=== PATIENT | female | born 1980 | race Caucasian/White ===

== ENCOUNTER 2021-06-28 11:09 | Emergency (ER) | payer MEDICAID, SELFPAY ==
--- NOTE | 2021-06-28 11:16 | ED.EAR ---
HPI - Ear Problem General Chief complaint: Upper Respiratory Infection Stated complaint: Right Ear Pain Time Seen by Provider: 06/28/21 11:16 Source: patient and RN notes reviewed History of Present Illness HPI Narrative: Patient is a 40-year-old female who presents the urgent care with complaints of right ear pain. Patient states that started 3 days ago and she has been taking ibuprofen. Patient recently had Covid in May and was vaccinated with her first dose recently. Denies of any other upper respiratory complaints. Denies of any known exposure to Covid or strep. No other acute complaints. No acute distress noted. Patient aware of the plan of care. Some parts of this dictation were generated by voice recognition software and may contain typographical and/or grammatical inaccuracies. Related Data Home Medications Medication Instructions Recorded Confirmed phentermine 37.5 mg PO DAILY 06/28/21 06/28/21 Allergies Allergy/AdvReac Type Severity Reaction Status Date / Time Penicillins Allergy Unknown Hives Verified 06/28/21 11:35 Review of Systems Review of Systems: CONSTITUTIONAL: Denies fever, chills, or sweats. EYES: Denies visual changes, redness, or discharge. ENT: Denies rhinorrhea, congestion, sore throat. Reports of right otalgia CARDIOVASCULAR: Denies chest pain, palpitations, or edema. RESPIRATORY: Denies cough or dyspnea. GASTROINTESTINAL: Denies abdominal pain, nausea, vomiting, or diarrhea. GENITOURINARY: Denies dysuria or hematuria. SKIN: Denies rash or itching. MUSCULOSKELETAL: Denies back pain, joint pain, or myalgia. NEUROLOGIC: Denies headache, numbness, or weakness. All other systems reviewed are negative, except as documented in HPI. PMFSH Comments At the time of my signature, I reviewed and agree with the nursing past medical, surgical, social, and family history. There is no relevant family history pertinent to the patient complaint. Exam Narrative: GENERAL: This is a well-nourished, well-developed patient, in no apparent distress. HEAD: normocephalic, atraumatic. EYES: PERRL. Sclera clear/white. Vision is grossly intact. EARS: External ears normal, auditory canals clear and without drainage, moderate fluid noted behind right TM. Unable to visualize left TM due to cerumen impaction. Right TM normal without perforation. Hearing grossly intact. NOSE: External nose normal with no obvious nasal discharge, nares without redness, no rhinorrhea. THROAT: Mucous membranes moist, posterior pharynx clear. Mild postnasal drainage NECK: Neck supple, non-tender without lymphadenopathy, masses or thyromegaly. CARDIOVASCULAR: Regular rate and rhythm without murmurs, gallops, or rubs. RESPIRATORY: Clear to auscultation. Breath sounds equal bilaterally. No wheezes, rales, or rhonchi. SKIN: warm, intact with no suspicious lesions or rash, good texture and turgor. NEURO: awake, alert, and oriented to person, place and time. There were no obvious focal neurologic abnormalities. EXTREMITIES: No clubbing, cyanosis, or edema. Course Vital Signs Vital signs: Vital Signs Temperature 98.9 F 06/28/21 11:22 Pulse Rate 86 06/28/21 11:22 Respiratory Rate 14 06/28/21 11:22 Blood Pressure 121/86 06/28/21 11:22 Pulse Oximetry 100 06/28/21 11:22 Temperature 98.9 F 06/28/21 11:22 Pulse Rate 86 06/28/21 11:22 Respiratory Rate 14 06/28/21 11:22 Blood Pressure 121/86 06/28/21 11:22 Pulse Oximetry 100 06/28/21 11:22 Reviewed Medical Decision Making MDM Narrative Medical decision making narrative: Advised mother to continue ibuprofen/Tylenol as needed for pain. May use a warm compress to the ear for comfort. Symptoms are likely due to postnasal drainage and fluid behind the ear. Use an [id number] antihistamine such as Claritin or Zyrtec in conjunction with Flonase nasal spray for symptom relief. If you develop any increase in symptoms associated with fever, nausea, vomiting?foll
[2021-06-28 11:22] VITALS: BP 121/86; PULSE 86; RESP 14; TEMP 37.2; O2SAT 100
== END 2021-06-28 12:00 | disposition home or self-care (01) ==
PROVIDERS: Emergency Provider Nurse Practitioner Family
DX: H92.01 Otalgia, right ear (principal)
CPT/HCPCS: 99211; G0463

== ENCOUNTER 2021-07-15 08:09 | Emergency (ER) | payer MEDICAID, SELFPAY ==
--- NOTE | 2021-07-15 15:27 | PC.NURSE ---
830 prior to registration pt informed facility does not have a provider at this time and there will be a delay in care. pt states she can not wait now because she has a scheduled appointment after this early visit. pt pleasant and conversive in no distress.
== END 2021-07-15 08:30 | disposition left against medical advice (07) ==
PROVIDERS: Emergency Provider Internal Medicine Hematology & Oncology
DX: Z53.21 Procedure and treatment not carried out due to patient leaving prior to being seen by health care provider (principal)
CPT/HCPCS: 99199

== ENCOUNTER 2021-09-07 16:59 | Emergency (ER) | payer MEDICAID, SELFPAY ==
--- NOTE | ~2021-09-07 | CT_ITS ---
EXAMINATION: CT abdomen pelvis wo con DATE: 09/07/2021 19:37 INDICATION: Abdominal pain TECHNIQUE: Computed tomography (CT) of the abdomen and pelvis was performed without intravenous contr ast. The dose-length product was 677.44 mGy-cm. Automated exposure control and iterative reconstructi on technique were employed. COMPARISON: CT dated 06/22/2017. FINDINGS: Heart size is normal. Lung bases are unremarkable. No significant vascular abnormality. The re are cholecystectomy clips. The liver, spleen, pancreas, adrenal glands and left kidney are unremarkable. There are punctate nono bstructing lower pole stones in the right kidney. There are changes of previous appendectomy. No abno rmal pelvic masses or fluid collections. Nonobstructive bowel gas pattern. No free air or free fluid. No significant vascular abnormality. No lymphadenopathy. No acute osseous abnormality. IMPRESSION: 1. Punctate nonobstructing right nephrolithiasis. Reviewed, dictated and finalized at [facility]
[2021-09-07 17:18] VITALS: BP 145/104; PULSE 85; RESP 17; TEMP 37.4; O2SAT 100
--- NOTE | 2021-09-07 18:18 | ED.ABDPAIN ---
HPI - Abdominal Pain General Chief Complaint: Abdominal Pain Stated Complaint: abd pain, vomiting Time Seen by Provider: 09/07/21 18:05 Source: RN notes reviewed History of Present Illness HPI narrative: Patient presents emergency room from home for abdominal pain. Patient states symptoms began yesterday with pain in the upper abdomen that worsened today pain is described as sharp and stabbing is in the upper abdomen and radiates through to the back associated nausea vomiting diarrhea. Patient denies any fevers or chills chest pain shortness of breath or any other symptoms states she did take Tylenol at home with no relief Related Data Allergies Allergy/AdvReac Type Severity Reaction Status Date / Time iohexol Allergy Severe Difficulty Verified 09/07/21 17:24 [From contrast - CT, X-RAY] Breathing NSAIDS (Non-Steroidal Allergy Severe Swelling Verified 09/07/21 17:24 Anti-Inflamma of Lip/Tongue/Throat Penicillins Allergy Unknown Hives Verified 06/28/21 11:35 Review of Systems Review of Systems: Gen.: Denies fevers or chills ENT: Denies congestion Respiratory: Denies shortness of breath or cough CV: Denies chest pain or palpitations GI: See HPI Musculoskeletal: Denies back pain or muscle pain Neuro: Denies numbness, tingling, weakness or focal weakness Skin: Denies rash Except as documented, all other systems reviewed and negative PMFSH Past Medical History Medical History (Updated 09/07/21 @ 21:43 by Samuel Rendon DO) Patient denies significant medical history Social History Social History (Updated 09/07/21 @ 18:19 by Samuel Rendon DO) Smoking status: Never smoker Exam Narrative: APPEARANCE: No acute distress, nontoxic, resting in bed HEENT: Normocephalic, atraumatic, OMM RESPIRATORY: No respiratory distress, clear to auscultation bilaterally with no rhonchi wheezing or rales CARDIOVASCULAR: RRR s murmur ABDOMINAL: Soft nondistended diffusely tender palpation with increased tenderness in epigastric and right upper quadrant left upper quadrant no rebound or guarding MUSCULOSKELETAl: Moves all extremities. No clubbing, cyanosis or edema. NEURO: Awake and alert. Following commands, speech normal, no focal deficits SKIN:: Warm, dry. Normal Color PSYCHIATRIC: Normal affect/mood Course Course Emergency Course: Patient states that they are feeling much better at this time. States abdominal pain has r improved. Repeat abdominal exam shows the patient's abdomen to be soft with no surgical abdomen present. Discussed with patient results of workup and diagnosis. Discussed need for follow-up with primary care physician, reasons to return to the emergency department in proper use of medication. Patient understands and agrees to current treatment plan Vital Signs Vital signs: Vital Signs Temperature 99.3 F 09/07/21 17:18 Pulse Rate 85 09/07/21 17:18 Respiratory Rate 17 09/07/21 17:18 Blood Pressure 145/104 H 09/07/21 17:18 Pulse Oximetry 100 09/07/21 17:18 Temperature 99.3 F 09/07/21 17:18 Pulse Rate 78 09/07/21 22:05 Respiratory Rate 20 09/07/21 22:05 Blood Pressure 112/77 09/07/21 22:05 Pulse Oximetry 99 09/07/21 20:45 MDM - Abdominal Pain MDM Narrative Medical decision making narrative: Patient's abdomen is soft without significant pain or signs of surgical abdomen on serial exams. Lab and x-ray evaluations are reviewed and patient is felt to be a reasonable candidate for outpatient management. Patient was instructed as to limitations of x-ray and laboratory evaluation and encouraged to return to ED or primary physician for repeat exam in 12 hours if continued or worsening pain Lab Data Result diagrams: 09/07/21 18:46 09/07/21 18:46 Labs: Lab Results 09/07/21 09/07/21 09/07/21 Range/Units 18:46 18:46 19:11 WBC 9.3 (4.5-10.0) K/mm3 RBC 3.97 L (4.2-5.4) M/mm3 Hgb 12.2 (12.0-15.0) g/dL Hct 35.4 L (37.0-47.0)
[2021-09-07] MEDS: SODIUM CHLORIDE 0.9% IV 1,000 ML 999 ML IV CONT (18:51)
[2021-09-07] MEDS: MORPHINE SULFATE (*CRX) 4 MG/ML INJ IV PUSH (18:52)
[2021-09-07] MEDS: ONDANSETRON INJ 4 MG/2 ML VIAL IV PUSH (18:52)
[2021-09-07 18:55] LABS: Basophils Percent Auto 0.3 % (0.2-1.2); Eosinophils Absolute Auto 0.4 K/mm3 (0-0.3); Eosinophils Percent Auto 4.1 % (0-4.4); Hematocrit 35.4 % (37.0-47.0); Hemoglobin 12.2 g/dL (12.0-15.0); Immature Granulocyte Absolute 0.05 K/mm3 (0.00-0.031); Immature Granulocyte Percent A 0.5 % (0-0.5); Lymphocytes Absolute Auto 1.75 K/mm3 (0.9-3.2); Lymphocytes Percent Auto 18.9 % (18.3-44.2); Mean Corpuscular HGB Conc 34.5 g/dl (32-36); Mean Corpuscular Hemoglobin 30.7 pg (26-34); Mean Corpuscular Volume 89.2 fl (80-100); Mean Platelet Volume 10.7 fl (7.4-10.4); Monocytes Absolute Auto 0.6 K/mm3 (0.1-0.6); Monocytes Percent Auto 6.5 % (2.6-8.5); Neutrophils Absolute Auto 6.5 K/mm3 (1.3-6.7); Neutrophils Percent Auto 69.7 % (45.5-73.1); Platelet Count Result 277 k/mm3 (150-375); Red Blood Count 3.97 M/mm3 (4.2-5.4); Red Cell Distribution Width 13.4 % (11.5-14.5); White Blood Count 9.3 K/mm3 (4.5-10.0)
[2021-09-07] MEDS: diphenhydrAMINE HCl INJ 50 MG/ML VIAL 25 MG IV PUSH (19:00)
[2021-09-07 19:05] LABS: Alanine Aminotransferase 13 U/L (4-35); Albumin Level 4.6 g/dL (3.5-5.1); Alkaline Phosphatase 83 U/L (38-126); Anion Gap 6 mmol/L (8-16); Aspartate Amino Transferase 23 U/L (14-36); Bilirubin,Total 0.4 mg/dL (0.2-1.3); Blood Urea Nitrogen 10 mg/dL (7-17); Calcium 9.7 mg/dL (8.4-10.2); Carbon Dioxide 30 mmol/L (22-30); Chloride 102 mmol/L (98-107); Estimated CRCL calculation 106 ml/min; Estimated Glomerular Filt Rate > 60; Glucose 109 mg/dL (65-110); Lipase 45 U/L (23-300); Sodium 138 mmol/L (137-145)
[2021-09-07 19:32] LABS: Add Urine Microscopic? YES; Appearance Urine Cloudy (Clear); Bacteria Urine Trace /hpf; Bilirubin Urine Negative (Negative); Blood Urine Negative (Negative); Color Urine Yellow (Yellow); Glucose Urine UA Negative (Negative); Ketones Urine Negative (Negative); Leukocyte Esterase Ur 2+ LEU/UL (Negative); Mucus Urine Rare /lpf; Nitrate Urine Negative (Negative); Protein Urine Negative (Negative); Specific Grav Ur 1.019 (1.001-1.035); Squamous Epithelial Cell Urine Few /hpf (Few); Urobilinogen Urine Negative mg/dL (<2.0)
[2021-09-07 20:45] VITALS: BP 142/78; PULSE 78; RESP 18; O2SAT 99
[2021-09-07 22:05] VITALS: BP 112/77; PULSE 78; RESP 20
== END 2021-09-07 22:13 | disposition home or self-care (01) ==
PROVIDERS: Emergency Medicine; Emergency Provider Emergency Medicine
DX: N39.0 Urinary tract infection, site not specified (principal); R10.13 Epigastric pain; R11.2 Nausea with vomiting, unspecified; N20.0 Calculus of kidney
CPT/HCPCS: 36415; 74176; 80053; 81001; 81025; 83690; 85025; 87086; 87088; 96361; 96374; 96375; 99284; A9270; J0500; J1200; J2270; J2405; J7030

== ENCOUNTER 2021-12-29 18:30 | Emergency (ER) | payer MEDICAID, SELFPAY ==
[2021-12-29] VITALS (10 sets, daily range): BP systolic 101–153; BP diastolic 59–113; PULSE 104; RESP 17; TEMP 36.5; O2SAT 98–100
--- NOTE | ~2021-12-29 | CT_ITS ---
EXAMINATION: CT abdomen pelvis wo con DATE: 12/29/2021 20:48 INDICATION: Right flank pain, hematuria TECHNIQUE: Computed tomography (CT) of the abdomen and pelvis was performed without intravenous contr ast. Automated exposure control and iterative reconstruction technique were employed. Exam dose: 109 8.22 mGy-cm total exam DLP. COMPARISON: 09/07/2021 CT abdomen pelvis FINDINGS: There is minimal dependent bilateral lower lobe atelectasis. Normal heart size. No pericard ial or pleural effusion. Status post cholecystectomy. The liver, spleen, pancreas, adrenal glands and kidneys are unremarkable on this limited noncontrast examination.. No bile duct or pancreatic duct dilatation. No urinary tra ct calculus or hydroureteronephrosis. The urinary bladder, uterus and adnexal areas are unremarkable. Normal caliber of the abdominal aorta. No intraperitoneal or retroperitoneal or pelvic mass lesion or adenopathy or ascites. Status post appendectomy. No bowel obstruction, bowel wall thickening, pneumatosis or intraperitoneal free air. No suspicious osteolytic or osteoblastic lesions. IMPRESSION: Status post cholecystectomy and appendectomy Reviewed, dictated and finalized at [facility]. Reviewed, dictated and finalized at [facility].
--- NOTE | 2021-12-29 19:10 | ED.FEMALEGU ---
HPI - Female Genitourinary General Chief complaint: Urogenital-Female Stated complaint: RIGHT FLANK PAIN Time Seen by Provider: 12/29/21 18:57 Source: patient History of Present Illness HPI Narrative: 41-year-old female presented to the emergency department for evaluation of right flank pain. Patient states that she did have some minor back pain yesterday but today the back pain became significantly worse. Patient did notice that she did have some hematuria today. Patient does have a prior history of urolithiasis and in 2018 did have a ureteral stent placed. This happened back in [place], patient does not have a local urologist. Patient reports right back pain that radiates down to the right lower quadrant. Patient does report associated nausea without vomiting. Patient denies any chest pain or shortness of breath. Patient does have history of cholecystectomy in 2008. Related Data Allergies Allergy/AdvReac Type Severity Reaction Status Date / Time iohexol Allergy Severe Difficulty Verified 12/29/21 18:30 [From contrast - CT, X-RAY] Breathing NSAIDS (Non-Steroidal Allergy Severe Swelling Verified 12/29/21 18:30 Anti-Inflamma of Lip/Tongue/Throat Penicillins Allergy Unknown Hives Verified 12/29/21 18:30 Review of Systems Review of Systems: CONSTITUTIONAL: Denies fever, chills, or sweats. EYES: Denies visual changes, redness, or discharge. ENT: Denies rhinorrhea, congestion, sore throat, or otalgia. CARDIOVASCULAR: Denies chest pain, palpitations, or edema. RESPIRATORY: Denies cough or dyspnea. GASTROINTESTINAL: Right flank pain with associated nausea vomiting GENITOURINARY: Reports hematuria SKIN: Denies rash or itching. MUSCULOSKELETAL: Denies back pain, joint pain, or myalgia. NEUROLOGIC: Denies headache, numbness, or weakness. All systems reviewed & are unremarkable except as noted in HPI and below PMFSH Past Medical History Medical History (Updated 12/30/21 @ 00:00 by Essence Carson) Patient denies significant medical history Social History Social History (Updated 09/07/21 @ 18:19 by Samuel Rendon DO) Smoking status: Never smoker Exam Narrative: APPEARANCE: Well appearing, no pain, no distress, well-nourished. HEAD: normocephalic, atraumatic. EYES: PERRLA/EOMI, conjunctivae clear. NOSE: Normal no drainage EARS:TMS clear with good light reflex. THROAT: Pharynx clear, no exudate. NECK: Supple. No adenopathy, no masses. RESPIRATORY: Airway patent, respirations nonlabored. Clear to auscultation bilaterally, no rales, rhonchi, wheezing. CARDIOVASCULAR: Regular rate and rhythm without murmurs rubs or gallops. ABDOMINAL: Right flank tenderness to palpation. No anterior abdominal tenderness to palpation. MUSCULOSKELETAL: Moves all extremities. Strength/ROM intact, No edema, No calf tenderness. NEURO: Alert. Cranial nerves II through XII intact. SKIN: Warm, dry. Normal Color Course Course Emergency Course: Patient does have evidence of a urinary tract infection. Patient CT scan was negative for abdominal pathology and was negative for ureterolithiasis. Patient was updated on the plan for treatment. Patient was started on Rocephin in the emergency department. Patient does have a penicillin allergy but states she has taken Keflex previously. Patient was discharged with Keflex and Pyridium. Patient was encouraged to have close follow-up with her primary care physician. Patient was also educated on reasons to return to the emerge department. All questions concerns and concerns were addressed. Vital Signs Vital signs: Vital Signs Temperature 97.7 F 12/29/21 18:32 Pulse Rate 104 H 12/29/21 18:32 Respiratory Rate 17 12/29/21 18:32 Blood Pressure 153/92 H 12/29/21 18:32 Pulse Oximetry 100 12/29/21 18:32 Temperature 97.7 F 12/29/21 18:32 Pulse Rate 104 H 12/29/21 18:32 Respiratory Rate 17 12/29/21 18:32 Blood Pressure 123/113 H 12/29/21 22:01 Pulse Oximetry 98 12/29
[2021-12-29] MEDS: HYDROmorphone HCL INJ (*CRX) 1 MG/ML SYR IV PUSH (20:04)
[2021-12-29] MEDS: ONDANSETRON INJ 4 MG/2 ML VIAL IV PUSH (20:05)
[2021-12-29 20:11] LABS: Basophils Absolute Auto 0.1 K/mm3 (0.0-0.1); Eosinophils Percent Auto 15.2 % (0-4.4); Hematocrit 35.7 % (37.0-47.0); Immature Granulocyte Absolute 0.03 K/mm3 (0.00-0.031); Immature Granulocyte Percent A 0.5 % (0-0.5); Lymphocytes Absolute Auto 2.01 K/mm3 (0.9-3.2); Lymphocytes Percent Auto 32.1 % (18.3-44.2); Mean Corpuscular HGB Conc 33.6 g/dl (32-36); Mean Corpuscular Volume 92.2 fl (80-100); Mean Platelet Volume 10.2 fl (7.4-10.4); Monocytes Absolute Auto 0.5 K/mm3 (0.1-0.6); Monocytes Percent Auto 8.6 % (2.6-8.5); Neutrophils Absolute Auto 2.7 K/mm3 (1.3-6.7); Neutrophils Percent Auto 42.6 % (45.5-73.1); Platelet Count Result 314 k/mm3 (150-375); Red Blood Count 3.87 M/mm3 (4.2-5.4); Red Cell Distribution Width 13.6 % (11.5-14.5); White Blood Count 6.3 K/mm3 (4.5-10.0)
[2021-12-29] MEDS: diphenhydrAMINE HCl INJ 50 MG/ML VIAL 25 MG IV PUSH ×2 (20:19→21:49)
[2021-12-29 20:20] LABS: Potassium 3.7 mmol/L (3.4-5.0)
[2021-12-29 20:25] LABS: Alanine Aminotransferase 16 U/L (4-35); Albumin Level 4.5 g/dL (3.5-5.1); Alkaline Phosphatase 76 U/L (38-126); Anion Gap 7 mmol/L (8-16); Aspartate Amino Transferase 28 U/L (14-36); Bilirubin,Total 0.3 mg/dL (0.2-1.3); Blood Urea Nitrogen 13 mg/dL (7-17); Calcium 9.2 mg/dL (8.4-10.2); Carbon Dioxide 29 mmol/L (22-30); Chloride 104 mmol/L (98-107); Estimated CRCL calculation 112 ml/min; Estimated Glomerular Filt Rate > 60; Glucose 92 mg/dL (65-110); Sodium 140 mmol/L (137-145)
[2021-12-29 20:39] LABS: Add Urine Microscopic? YES; Appearance Urine Cloudy (Clear); Bilirubin Urine Negative (Negative); Blood Urine 3+ (Negative); Color Urine Yellow (Yellow); Glucose Urine UA Negative (Negative); Ketones Urine Negative (Negative); Leukocyte Esterase Ur 3+ LEU/UL (Negative); Mucus Urine Rare /lpf; Nitrate Urine Negative (Negative); Protein Urine 1+ mg/dL (Negative); RBC Urine >75 /hpf (0-2); Squamous Epithelial Cell Urine Moderate /hpf (Few); Urobilinogen Urine Negative mg/dL (<2.0); WBC Urine 51-75 /hpf
[2021-12-29] MEDS: PHENAZOPYRIDINE HCL 100 MG TABLET PO (21:46)
[2021-12-29] MEDS: HYDROmorphone HCL INJ (*CRX) 1 MG/ML SYR 0.5 MG IV PUSH (21:46)
== END 2021-12-29 22:23 | disposition home or self-care (01) ==
PROVIDERS: Emergency Medicine; Emergency Provider Emergency Medicine
DX: N39.0 Urinary tract infection, site not specified (principal); Z87.442 Personal history of urinary calculi
CPT/HCPCS: 36415; 74176; 80053; 81001; 81025; 85025; 87077; 87086; 87088; 96365; 96375; 96376; 99284; A9270; J0696; J1170; J1200; J2405

== ENCOUNTER 2022-01-05 19:59 | Emergency (ER) | payer MEDICAID, SELFPAY ==
[2022-01-05 20:05] VITALS: BP 124/80; PULSE 79; RESP 20; TEMP 36.3; O2SAT 100
--- NOTE | 2022-01-05 20:39 | ED.ABDPAIN ---
HPI - Abdominal Pain General Chief Complaint: Abdominal Pain Stated Complaint: flank pain Time Seen by Provider: 01/05/22 20:14 History of Present Illness HPI narrative: Patient is a 41-year-old female who presents ER with right-sided flank pain. Patient reports she was seen in the ER previously for the same discomfort. She was told by the physician here that she may have a UTI and was placed on antibiotics. She finished antibiotics 2 days ago. She reports the pain returned today and she began having blood in her urine. She has history of kidney stones. She is reporting small nausea. No fevers or chills or sweats. No chest pain or chest pressure. Patient feels like she needs to urinate regularly. Previous work-up revealed a negative CT of the abdomen pelvis. Patient had unremarkable BMP/CBC. Urinalysis may represent contamination given moderate squamous epithelial cells. Urine culture was negative. Related Data Allergies Allergy/AdvReac Type Severity Reaction Status Date / Time iohexol Allergy Severe Difficulty Verified 12/29/21 18:30 [From contrast - CT, X-RAY] Breathing NSAIDS (Non-Steroidal Allergy Severe Swelling Verified 12/29/21 18:30 Anti-Inflamma of Lip/Tongue/Throat Penicillins Allergy Unknown Hives Verified 12/29/21 18:30 Review of Systems Review of Systems: All systems reviewed & are unremarkable except as noted in HPI and below Constitutional: Constitutional: Denies chills, Denies fever(s) and Denies weakness Cardiovascular: Cardiovascular: Denies chest pain, Denies rapid heart rate and Denies radiating jaw, neck or arm pain Respiratory: Respiratory: Denies cough and Denies dyspnea Gastrointestinal: Gastrointestinal: Reports abdominal pain, Denies diarrhea, Reports nausea and Denies vomiting Genitourinary: Genitourinary: Reports hematuria, Reports nocturia, Denies dysuria, Reports flank pain and Denies urinary incontinence Musculoskeletal: Musculoskeletal: Denies back pain and Denies muscle cramps PMFSH Past Medical History Medical History (Updated 01/05/22 @ 20:47 by Herson Vazquez MD) History of kidney stones Surgical History Surgical History (Updated 01/05/22 @ 20:44 by Herson Vazquez MD) History of ureter stent Social History Social History (Updated 09/07/21 @ 18:19 by Samuel Rendon DO) Smoking status: Never smoker Exam Narrative: GENERAL: Uncomfortable-appearing, well-nourished, and in no acute distress. HEAD: Normocephalic, atraumatic. CHEST: Clear to auscultation. No respiratory distress. HEART: Regular rate and rhythm. Normal peripheral pulses. ABDOMEN: Soft, nontender, nondistended. EXTREMITIES: Normal range of motion. No edema. SKIN: Warm, dry, no rash. NEURO: Alert and oriented x3. PSYCH: Normal mood and affect. Course Course Emergency Course: Labs, imaging, pain and nausea control ordered for the patient. While is in the room with another patient patient became upset when she found out that she was going to receive acetaminophen and told the nurse she wanted to leave AGAINST MEDICAL ADVICE and walked out after being informed of the risks of her departure by the nurse.. Vital Signs Vital signs: Vital Signs Temperature 97.4 F L 01/05/22 20:05 Pulse Rate 79 01/05/22 20:05 Respiratory Rate 20 01/05/22 20:05 Blood Pressure 124/80 01/05/22 20:05 Pulse Oximetry 100 01/05/22 20:05 Temperature 97.4 F L 01/05/22 20:05 Pulse Rate 79 01/05/22 20:05 Respiratory Rate 20 01/05/22 20:05 Blood Pressure 124/80 01/05/22 20:05 Pulse Oximetry 100 01/05/22 20:05 Discharge Plan Discharge Clinical Impression: Abdominal pain Patient Disposition: Left Against Medical Advice Condition: Stable Prescriptions: No Action cephalexin 250 mg capsule 250 mg PO Q6H 7 Days Qty: 28 RF: 0 phenazopyridine [Pyridium] 100 mg tablet 100 mg PO TID PRN (Reason: pain) Qty: 10 RF: 0 ondansetron 4 mg tablet,disinteg
== END 2022-01-05 20:40 | disposition left against medical advice (07) ==
LOC: ANHED 20:48
PROVIDERS: Emergency Provider Emergency Medicine
DX: R10.9 Unspecified abdominal pain (principal); Z87.442 Personal history of urinary calculi
CPT/HCPCS: 99281; J0131; J2405

== ENCOUNTER 2022-06-30 22:32 | Emergency (ER) | payer MEDICAID, SELFPAY ==
[2022-06-30] VITALS (10 sets, daily range): BP systolic 121–152; BP diastolic 46–98; PULSE 49–92; RESP 13–22; TEMP 36.9; O2SAT 96–100
--- NOTE | ~2022-06-30 | CT_ITS ---
EXAMINATION: CT abdomen pelvis wo con DATE: 06/30/2022 23:56 INDICATION: Right lower quadrant abdominal pain radiating to right flank. Nausea, hematuria, vomiting . History kidney stones. TECHNIQUE: Computed tomography (CT) of the abdomen and pelvis was performed without intravenous contr ast. Automated exposure control and iterative reconstruction technique were employed. Exam dose: 122 1.77 mGy-cm total exam DLP. COMPARISON: 12/29/2021 CT abdomen pelvis FINDINGS: The lung bases are clear. Normal heart size. No pericardial or pleural effusion. Status post cholecystectomy. Normal splenic size. No hepatic, splenic, pancreatic, and adrenal or maylin al space-occupying mass lesion is evident. There is a very subtle pinpoint nonobstructing lower pole right renal calculus. Normal caliber of the abdominal aorta. No intraperitoneal or retroperitoneal or pelvic mass lesion or adenopathy or ascites. Status post appendectomy. There is prominent of fecal material in colon but no bowel obstruction, bow el wall thickening, pneumatosis or intraperitoneal free air. Uterus, adnexal areas and urinary bladder are unremarkable. No suspicious osteolytic or osteoblastic lesions. IMPRESSION: Subtle pinpoint nonobstructing lower pole right renal calculus Status post cholecystectomy Status post appendectomy Reviewed, dictated and finalized at [facility]. Reviewed, dictated and finalized at [facility].
--- NOTE | 2022-06-30 23:15 | ED.GENADULT ---
HPI - General Adult General Chief complaint: Urogenital-Female Stated complaint: R flank pain @1500, hematuria Time Seen by Provider: 06/30/22 22:44 History of Present Illness HPI narrative: 41-year-old female presents to the emergency room for sudden onset of right flank pain. Patient has a history of obstructive kidney stone that required stenting and lithotripsy. Patient states the pain began about 3:00. Pain radiates into her right groin. Also complains of decreased urinary output and hematuria. Denies fever Related Data Allergies Allergy/AdvReac Type Severity Reaction Status Date / Time iohexol Allergy Severe Rash Verified 06/30/22 22:51 [From contrast - CT, X-RAY] NSAIDS (Non-Steroidal Allergy Severe Swelling Verified 06/30/22 22:51 Anti-Inflamma of Lip/Tongue/Throat Penicillins Allergy Unknown Hives Verified 06/30/22 22:51 Review of Systems Review of Systems: CONSTITUTIONAL: Denies fever, chills, or sweats. EYES: Denies visual changes, redness, or discharge. ENT: Denies rhinorrhea, congestion, sore throat, or otalgia. CARDIOVASCULAR: Denies chest pain, palpitations, or edema. RESPIRATORY: Denies cough or dyspnea. GASTROINTESTINAL: Reports right flank pain GENITOURINARY: Reports hematuria SKIN: Denies rash or itching. MUSCULOSKELETAL: Denies back pain, joint pain, or myalgia. NEUROLOGIC: Denies headache, numbness, dizziness, or weakness. PSYCHIATRIC: Denies anxiety or depression. PMFSH Past Medical History Medical History History of kidney stones Surgical History Surgical History History of ureter stent Social History Social History Smoking status: Never smoker Exam Narrative: GENERAL: Well-appearing, well-nourished, no physical limitations, and in no acute distress. HEAD: Normocephalic, atraumatic. EYES: Conjunctivae normal, PERRLA and EOMI. CHEST: Clear to auscultation. No respiratory distress. No wheezes rales or rhonchi. HEART: Regular rate and rhythm. No murmur heard. Normal peripheral pulses. ABDOMEN: Soft, nontender, nondistended, normal active bowel sounds. BACK: Right CVA tenderness EXTREMITIES: Normal range of motion. No edema. No clubbing or cyanosis SKIN: Warm, dry, no rash. No noted wounds NEURO: No focal deficits. Alert and oriented x3. MAEW. CN's II-XI intact bilaterally, normal gait PSYCH: Cooperative. Normal mood and affect. Course Vital Signs Vital signs: Vital Signs Temperature 36.9 C 06/30/22 22:46 Pulse Rate 84 06/30/22 22:46 Respiratory Rate 20 06/30/22 22:46 Blood Pressure 152/98 H 06/30/22 22:46 Pulse Oximetry 99 06/30/22 22:46 Oxygen Delivery Room Air 06/30/22 22:46 Temperature 36.9 C 06/30/22 22:46 Pulse Rate 77 07/01/22 00:31 Respiratory Rate 15 07/01/22 00:31 Blood Pressure 123/88 07/01/22 00:30 Pulse Oximetry 98 07/01/22 00:31 Oxygen Delivery Room Air 06/30/22 22:46 Medical Decision Making MDM Narrative Medical decision making narrative: 41-year-old female presented to the emergency room complaints of right flank pain that radiated into her suprapubic region. She her CT scan showed no evidence of stone. CBC and CMP were unremarkable. Urine shows a bacteremia. Patient either had a recent passed stone not captured by CT your as a developing pyelonephritis. Patient was given 1 dose of IV Cipro in the ER. We will send patient home with oral Cipro Vital Signs Vital Signs: Vital Signs Temperature 36.9 C 06/30/22 22:46 Pulse Rate 84 06/30/22 22:46 Respiratory Rate 20 06/30/22 22:46 Blood Pressure 152/98 H 06/30/22 22:46 Pulse Oximetry 99 06/30/22 22:46 Oxygen Delivery Room Air 06/30/22 22:46 Temperature 36.9 C 06/30/22 22:46 Pulse Rate 77 07/01/22 00:31 Respiratory Rate 15 07/01/22 00:31 Blood Pressure
[2022-06-30 23:19] LABS: Basophils Percent Auto 0.5 % (0.2-1.2); Eosinophils Absolute Auto 0.2 K/mm3 (0-0.3); Eosinophils Percent Auto 2.8 % (0-4.4); Hematocrit 32.9 % (37.0-47.0); Hemoglobin 11.1 g/dL (12.0-15.0); Immature Granulocyte Absolute 0.03 K/mm3 (0.00-0.031); Immature Granulocyte Percent A 0.5 % (0-0.5); Lymphocytes Absolute Auto 1.75 K/mm3 (0.9-3.2); Lymphocytes Percent Auto 28.4 % (18.3-44.2); Mean Corpuscular HGB Conc 33.7 g/dl (32-36); Mean Corpuscular Hemoglobin 29.8 pg (26-34); Mean Corpuscular Volume 88.2 fl (80-100); Mean Platelet Volume 10.4 fl (7.4-10.4); Monocytes Absolute Auto 0.6 K/mm3 (0.1-0.6); Monocytes Percent Auto 10.2 % (2.6-8.5); Neutrophils Absolute Auto 3.6 K/mm3 (1.3-6.7); Neutrophils Percent Auto 57.6 % (45.5-73.1); Platelet Count Result 276 k/mm3 (150-375); Red Blood Count 3.73 M/mm3 (4.2-5.4); Red Cell Distribution Width 13.9 % (11.5-14.5); White Blood Count 6.2 K/mm3 (4.5-10.0)
[2022-06-30] MEDS: ONDANSETRON INJ 4 MG/2 ML VIAL IV PUSH (23:26)
[2022-06-30] MEDS: HYDROmorphone HCL INJ (*CRX) 1 MG/ML SYR 0.5 MG IV PUSH (23:26)
[2022-06-30] MEDS: SODIUM CHLORIDE 0.9% IV 1,000 ML 999 ML IV CONT (23:27)
[2022-06-30 23:32] LABS: Alanine Aminotransferase 19 U/L (6-35); Albumin Level 4.5 g/dL (3.5-5.1); Alkaline Phosphatase 55 U/L (38-126); Anion Gap 16 mmol/L (8-16); Aspartate Amino Transferase 20 U/L (14-36); Bilirubin,Total 0.2 mg/dL (0.2-1.3); Blood Urea Nitrogen 10 mg/dL (7-17); Calcium 9.2 mg/dL (8.4-10.2); Carbon Dioxide 25 mmol/L (22-30); Chloride 101 mmol/L (98-107); Estimated CRCL calculation 100 ml/min; Estimated Glomerular Filt Rate > 60; Glucose 106 mg/dL (65-110); Potassium 3.5 mmol/L (3.4-5.0); Sodium 142 mmol/L (137-145)
[2022-06-30 23:53] LABS: Appearance Urine Cloudy (Clear); Bilirubin Urine 1+ (Negative); Blood Urine 3+ (Negative); Glucose Urine UA Negative (Negative); Ketones Urine Negative (Negative); Leukocyte Esterase Ur 1+ LEU/UL (Negative); Nitrate Urine Negative (Negative); Protein Urine 1+ mg/dL (Negative); Specific Grav Ur >= 1.030 (1.001-1.035); Urobilinogen Urine 0.2 mg/dL (<2.0); pH Urine 5.5 (5.0-9.0)
[2022-07-01] VITALS: PULSE 76; RESP 18; O2SAT 98
[2022-07-01] LABS: Add Urine Microscopic? YES; Color Urine Dark Yellow (Yellow)
[2022-07-01 00:06] LABS: Bacteria Urine Trace /hpf; Mucus Urine Rare /lpf; RBC Urine >75 /hpf (0-2); Squamous Epithelial Cell Urine Moderate /hpf (Few)
[2022-07-01 00:29] VITALS: PULSE 82; RESP 16; O2SAT 98
[2022-07-01 00:30] VITALS: BP 123/88; PULSE 75; RESP 16; O2SAT 99
[2022-07-01 00:31] VITALS: PULSE 77; RESP 15; O2SAT 98
[2022-07-01] MEDS: HYDROmorphone HCL INJ (*CRX) 1 MG/ML SYR 0.5 MG IV PUSH (00:34)
[2022-07-01] MEDS: CIPROFLOXACIN 400 MG/D5W 200ML 200 ML 200 MG IVPB (00:56)
[2022-07-01 02:10] VITALS: BP 115/79; PULSE 83; RESP 16; O2SAT 98
[2022-07-01 02:13] VITALS: BP 115/79; RESP 16; O2SAT 100
== END 2022-07-01 02:14 | disposition home or self-care (01) ==
PROVIDERS: Emergency Medicine; Emergency Provider Nurse Practitioner Family
DX: R10.9 Unspecified abdominal pain (principal); Z87.442 Personal history of urinary calculi; Z96.0 Presence of urogenital implants; N20.0 Calculus of kidney
CPT/HCPCS: 36415; 74176; 80053; 81001; 81025; 85025; 87086; 87088; 96361; 96365; 96374; 96375; 99284; J0744; J1170; J2405; J7030

== ENCOUNTER 2022-07-08 15:42 | Emergency (ER) | payer MEDICAID, SELFPAY ==
--- NOTE | ~2022-07-08 | XR_ITS ---
XR abdomen/kub 1V 07/08/2022 16:35 INDICATION: Flank pain TECHNIQUE: KUB COMPARISON: None FINDINGS: Bowel gas pattern is normal. There are cholecystectomy clips. There is no evidence of free air, mass, organomegaly, ascites or obstruction. No abnormal calculi are seen. The bones appear int act. IMPRESSION: 1: No acute abdominal abnormality identified. Reviewed, dictated and finalized at location B.
[2022-07-08 15:49] VITALS: BP 132/94; PULSE 80; RESP 18; TEMP 36.5; O2SAT 100
--- NOTE | 2022-07-08 16:09 | ED.GENADULT ---
HPI - General Adult General Chief complaint: Urogenital-Female Stated complaint: Kidney Stones Pain Time Seen by Provider: 07/08/22 16:07 History of Present Illness HPI narrative: 41-year-old female presents the emergency room for evaluation of continued lower abdominal pain and bilateral flank pain. Patient states that she was seen here last week for the same and cannot rule out pyelonephritis. Patient has allergy to contrast dye so CT with contrast was not obtained. Patient states her symptoms were improving until today when she noticed blood in her urine again. Patient reports having Related Data Allergies Allergy/AdvReac Type Severity Reaction Status Date / Time iohexol Allergy Severe Rash Verified 06/30/22 22:51 [From contrast - CT, X-RAY] NSAIDS (Non-Steroidal Allergy Severe Swelling Verified 06/30/22 22:51 Anti-Inflamma of Lip/Tongue/Throat Penicillins Allergy Unknown Hives Verified 06/30/22 22:51 Review of Systems Review of Systems: CONSTITUTIONAL: Denies fever, chills, or sweats. EYES: Denies visual changes, redness, or discharge. ENT: Denies rhinorrhea, congestion, sore throat, or otalgia. CARDIOVASCULAR: Denies chest pain, palpitations, or edema. RESPIRATORY: Denies cough or dyspnea. GASTROINTESTINAL: Reports lower abdominal GENITOURINARY: Denies dysuria or hematuria. SKIN: Denies rash or itching. MUSCULOSKELETAL: Reports lower back pain NEUROLOGIC: Denies headache, numbness, dizziness, or weakness. PSYCHIATRIC: Denies anxiety or depression. PMFSH Past Medical History Medical History History of kidney stones Surgical History Surgical History History of ureter stent Social History Social History Smoking status: Never smoker Exam Narrative: GENERAL: Well-appearing, well-nourished, no physical limitations, and in no acute distress. HEAD: Normocephalic, atraumatic. EYES: Conjunctivae normal, PERRLA and EOMI. CHEST: Clear to auscultation. No respiratory distress. No wheezes rales or rhonchi. No tenderness. HEART: Regular rate and rhythm. No murmur heard. Normal peripheral pulses. ABDOMEN: Soft, lower abdominal tenderness, nondistended, normal active bowel sounds. BACK: No CVA tenderness; lumbar paraspinal tenderness extending into the thoracolumbar fascia EXTREMITIES: Normal range of motion. No edema. No clubbing or cyanosis SKIN: Warm, dry, no rash. No noted wounds NEURO: No focal deficits. Alert and oriented x3. MAEW. CN's II-XI intact bilaterally, normal gait PSYCH: Cooperative. Normal mood and affect. Course Course Emergency Course: Explained findings of KUB and previous CT scan the patient. Discussed with patient this is likely due to heavy stool burden. Patient refused to IV fluids and labs at this time. Patient also states that she is going to go to another hospital to seek a second opinion. Vital Signs Vital signs: Vital Signs Temperature 36.5 C 07/08/22 15:49 Pulse Rate 80 07/08/22 15:49 Respiratory Rate 18 07/08/22 15:49 Blood Pressure 132/94 H 07/08/22 15:49 Pulse Oximetry 100 07/08/22 15:49 Temperature 36.5 C 07/08/22 15:49 Pulse Rate 80 07/08/22 15:49 Respiratory Rate 18 07/08/22 15:49 Blood Pressure 132/94 H 07/08/22 15:49 Pulse Oximetry 100 07/08/22 15:49 Medical Decision Making Vital Signs Vital Signs: Vital Signs Temperature 36.5 C 07/08/22 15:49 Pulse Rate 80 07/08/22 15:49 Respiratory Rate 18 07/08/22 15:49 Blood Pressure 132/94 H 07/08/22 15:49 Pulse Oximetry 100 07/08/22 15:49 Temperature 36.5 C 07/08/22 15:49 Pulse Rate 80 07/08/22 15:49 Respiratory Rate 18 07/08/22 15:49 Blood Pressure 132/94 H 07/08/22 15:49 Pulse Oximetry 100 07/08/22 15:49 Discharge Plan Discharge Clinical Impression: Constipation
--- NOTE | 2022-07-08 17:09 | PC.NURSE ---
Went ini to put in pt's IV. Anup ALBERT came in and explained to pt the results of her CT. After hearing the results, she decided to refuse IV fluids and labs and asked to be discharged.
[2022-07-08 17:14] LABS: Add Urine Microscopic? YES; Appearance Urine Slightly Cloudy (Clear); Bilirubin Urine Negative (Negative); Blood Urine 3+ (Negative); Glucose Urine UA Negative (Negative); Ketones Urine Negative (Negative); Leukocyte Esterase Ur 1+ LEU/UL (Negative); Nitrate Urine Negative (Negative); Protein Urine 1+ mg/dL (Negative); Urobilinogen Urine 0.2 mg/dL (<2.0)
[2022-07-08 17:16] LABS: Color Urine Light Red (Yellow)
[2022-07-08 17:35] LABS: Bacteria Urine Trace /hpf; Mucus Urine Rare /lpf; RBC Urine >75 /hpf (0-2); Squamous Epithelial Cell Urine Many /hpf (Few)
== END 2022-07-08 17:07 | disposition home or self-care (01) ==
LOC: ANHED 17:17
PROVIDERS: Emergency Provider Nurse Practitioner Family
DX: K59.00 Constipation, unspecified (principal); Z87.442 Personal history of urinary calculi; Z96.0 Presence of urogenital implants
CPT/HCPCS: 74018; 81001; 87086; 87088; 99283

== ENCOUNTER 2024-04-27 15:11 | Emergency (ER) | payer OTHER, MEDICAID, SELFPAY ==
[2024-04-27 15:20] VITALS: BP 130/80; PULSE 80; RESP 16; TEMP 36.7; O2SAT 99
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
== END 2024-04-27 16:39 | disposition home or self-care (01) ==
PROVIDERS: Emergency Provider Nurse Practitioner
DX: Z04.1 Encounter for examination and observation following transport accident (principal)
CPT/HCPCS: 99211; 99212; G0463

== ENCOUNTER 2024-11-15 18:12 | Emergency (ER) | payer BC, SELFPAY ==
--- NOTE | ~2024-11-15 | XR_ITS ---
EXAMINATION: XR chest 2V Exam Date/Time: 11/15/2024 18:48 [employer] HISTORY: SOB Comparison: 06/08/2019. RESULT: Lines, tubes, and devices: Cystectomy clips. Lungs and pleura: Clear. Cardiomediastinal silhouette: Stable. Other: No acute osseous or upper abdominal finding. IMPRESSION: No acute cardiopulmonary process. Reviewed, dictated and finalized at location K. [employer]
--- OUTSIDE RECORDS SUMMARY | 2024-11-15 18:14 | XMS_ITS | Continuity of Care Document ---
Author Organization [facility] Address [address] [place] [address] [place] [address] Phone Care Team Providers Care Pharmacognosist Name Role Phone Remington Amos MD Unavailable Unavailable Advance Directives Directive Yes / No Effective Date File Name No Information Encounters Encounter Description Practice Location Reason(s) For Visit Diagnoses Date Provider Providers Copied on Encounter [facility], [address] [place] [address] [address], [place], [place], [id number], [place] tel:[phone] SEC Marco A [place] Professional No Information [address] [facility] [address], [place], [place], [id number], [place]. tel:[phone] Family History Family Member Type Diagnosis Age At Onset No Information Payers Payer name Insurance type Covered green party ID Authoriza tion(s) [employer]I CI [id number] Social History Type Description Quantity Date Captured Comments Sex Female Smoking Status No Information Chief Complaint And Reason For Visit No Information Reason For Referral Reason For Referral No Information History Of Present Illness Encounter Date Complaint History Of Prese nt Illness No Information Functional Status Date Functional Assessmen t No Information Instructions Date Instruction Additional Infor mation No Information Assessments Type Assessment Date No Information Patient Care Teams Name Effective Dates (start - stop) Status Members No Information
--- OUTSIDE RECORDS SUMMARY | 2024-11-15 18:15 | XMS_ITS | Clinical Summary ---
Author Organization [facility] Address [address] [place] [address] Phone Care Team Providers Care Advisory Application Developer Name Role Phone Unavailable Primary Care Provider Unavailabl e Allergies Active Allergy Reactions Criticality Noted Date Comments Iodinated Contrast Media Hives High 12/15/2020 Ketorolac Tromethamine Shortness of Breath/Wheezing High 11/13/2012 Nsaids (Non-Steroidal Anti-Inflammatory Drug) Other (See Comments) 11/13/2012 Hx of stomach ulcer Penicillins Hives High 11/13/2012 Prednisone Anxiety Low 11/13/2012 Medications HYDROCODONE-ACET AMINOPHEN ORAL Take by mouth. Active Social History Tobacco Use Types Packs/Day Years Used Date Smoking Tobacco: Never Smokeless Tobacco: Never Alcohol Use Standard Drinks/Week Comments No 0 (1 standard drink = 0.6 oz pur e alcohol) Comments No Sex and Gender Information Value Date Recorded Sex Assigned at Not on file Legal Sex Female 11:[address]GE Gender Identity Not on file Sexual Orientation Not on file Last Filed Vital Signs Vital Sign Reading Time Taken Comments Blood Pressure 115/61 12/15/2020 5:[address] JUDGE Pulse 85 12/15/2020 5:[address] JUDGE Temperature 37.2 ??C (98.9 ??F) 12/15/2020 5:50 PM CS T Respiratory Rate 19 12/15/2020 4:[address] JUDGE Oxygen Saturation 97% 12/15/2020 5:[address] JUDGE Inhaled Oxygen Concentration - - Weight 111.6 kg (246 lb) 12/15/2020 11:[address] JUDGE Height 170.2 cm (5' 7 ) 12/15/2020 11:[address] JUDGE Body Mass Index 38.53 12/15/2020 11:[address] JUDGE Plan of Treatment Health Maintenance Due Date Last Done Comments DTAP/TDAP/TD VACCINES (1 - Tdap) 1999 HEPATITIS B VACCINES (1 of 3 - 19+ 3-dose series) 1999 CERVICAL CANCER SCREENING 2010 BREAST CANCER SCREENING 2020 INFLUENZA VACCINE (#1) 2024 HPV VACCINES Aged Out No longer eligi ble based on patient's age to complete this topic PNEUMOCOCCAL VACCINE 0-64 YEARS Aged Out No longer eligible based on patient's age to complete this topic Insurance
--- OUTSIDE RECORDS SUMMARY | 2024-11-15 18:15 | XMS_ITS | Continuity of Care Document ---
Author Organization [id number] - [facility] SpecialistsZolair EnergyCH[facility] Address [address] [facility] [address] [place] [address] Phone Care Team Providers Care Nurse Instructor Name Role Phone Roldan Turk MD Unavailable Unavailabl e Allergies, Adverse Reactions, Alerts Substance Reaction Status Criticality Penicillins Unknown Active No Information WARNIN allergy(ies) could not be collected because the type is not supported. Please contact the source practice for further details. Medications Medication Instructions Dosage Effective Dates (start - stop) Status Comments Cipro 500 mg tablet take 1 tablet by oral route every 12 hours 500 MG - Active Keflex 500 mg capsule take 1 capsule by oral route every 6 hours 500 MG - Active citalopram 40 mg tablet take 1 tablet by oral route every day 40 MG - Active divalproex 125 mg tablet,delayed release take 2 tablet by oral route every day at bedtime - Active quetiapine 25 mg tablet take 1 tablet by oral route every day at bedtime - No Longer Active lidocaine 4 % topical cream apply bid - No Longer Active prednisone 10 mg tablets in a dose pack take 4 tabs PO day 1-2-3; 3 tabs PO day 4-5-6; 2 tabs PO day 7-8-9; 1 tab PO 07-23-12 - No Longer Active methocarbamol 500 mg tablet take 1 tablet by oral route 2 times every day 500 MG - No Longer Active Procedures Procedure Date OFFICE/OUTPT EM EST PROB FOCUS/STRFWD 10 MINS OFFICE/OUTPT EM EST DETAILED/MODERATE 25 MINS OFFICE/OUTPT EM EST DETAILED/MODERATE 25 MINS OFFICE/OUTPT EM EST DETAILED/MODERATE 25 MINS OFFICE/OUTPT EM EST DETAILED/MODERATE 25 MINS OFFICE/OUTPT EM EST DETAILED/MODERATE 25 MINS OFFICE/OUTPT EM EST DETAILED/MODERATE 25 MINS OFFICE/OUTPT EM NEW COMPREH/MODERATE 45 MINS Advance Directives Directive Yes / No Effective Date File Name No Information Encounters Encounter Description Practice Location Reason(s) For Visit Diagnoses Date Provider Providers Copied on Encounter OFFICE/OUTPT EM EST PROB FOCUS/STRFWD 10 MINS [id number] - [facility], [address] [facility] [address], [place], [place], [facility], tel:[phone] PMS Burke Depression (chief complaint)B ack pain (chief complaint)I nsomnia (chief complaint) Chronic bilateral low back pain without sciaticaOther chronic painPrimary insomniaAmenorrhea 7 Burke Montilla. [address] [facility] [address], [place], [place], [id number]. tel:[phone] Referring Provider: Roldan Moses, [address] [facility] [address], [place], [address] . tel:[phone] OFFICE/OUTPT EM EST DETAILED/MOD ERATE 25 MINS [id number] - [employer], [address] [facility] [address], [place], [address], tel:[phone] PMS Burke hematuria (chief complaint)D epression (chief complaint) NephrolithiasisDep ressionBack pain 1 5 Burke Montilla. [address] [facility] [address], [place], [place], [id number]. tel:[phone] Referring Provider: Roldan Moses, [address], [place], [address] . tel:[phone] OFFICE/OUTPT EM EST DETAILED/MOD ERATE 25 MINS [id number] - [employer],[facility], [address] [facility] [address], [place], [address], [place] tel:[phone] [facility] Depression (chief complaint)b ite under left arm (chief complaint)b ack pain (chief complaint) DepressionInfected cyst of skinAmenorrheaPani c attack 5 Burke Vincent. [address] [facility] [address], [place], [place], [address]. tel:[phone] Referring Provider: Roldan Moses, [address] [facility], [place], [address] . tel:[phone] [id number] - [employer], [address] [facility] [address], [place], [address], [place] tel:[phone] [facility] No Information 5 [facility] Roldan. [address] [facility] [address], [place], [place], [id number]. tel:[phone] Referring Provider: Roldan Moses, [address] [place] [address] [address], [place], [address] . tel:[phone] OFFICE/OUTPT EM EST DETAILED/MOD ERATE 25 MINS [id number] - [employer], [address] [facility] [address], [place], [address], [place] tel:[phone] [facility] Back pain (chief complaint)d epression (chief complaint) Back painDepressionPani c attack 5 Burke Vincent. [address] [facility] [address], [place], [place], [address]. tel:[phone] Referring Provider: Roldan Moses, [address] [facility] [address], [place], [address] . tel:[phone] OFFICE/OUTPT EM EST DETAILED/MOD ERATE 25 MINS [id number] - [facility], [address] [facility] [address], [place], [address], [place] tel:[phone] [facility] tick bite (chief complaint)b ack pain (chief complaint)f oot pain (chief complaint) Back painFoot painTick biteBite of nonvenomous arthropod Jan-2 0- 5 [facility] [address] [facility] [address], [place], [place], [address]. tel:[phone] Referring Provider: Roldan Moses, [address] [facility] [address], [place], [address] . tel:[phone] OFFICE/OUTPT EM EST DETAILED/MOD ERATE 25 MINS [id number] [facility], [address] [facility] [address], [place], [address], [place] tel: [phone] [facility] left foot pain (chief complaint)B ack pain (chief complaint) Pain in limbBack painUrinary incontinence Jan-[address] [facility]. [address] [facility] [address], [place], [place], [address]. tel:[phone] Referring Provider: Roldan Moses, [address] [address], [place], [address] . tel:[phone] OFFICE/OUTPT EM EST DETAILED/MOD ERATE 25 MINS [id number] [facility], [address] [facility] [address], [place], [address], [place] tel: [phone] [facility] abdominal pain (chief complaint)O besity (chief complaint) Abdominal painUTI (lower urinary tract infection)ObesityE levated blood pressure reading without diagnosis of hypertension Dec-[address] [facility]. [address] [facility] [address], [place], [place], [address]. tel:[phone] Referring Provider: Roldan Moses, [address] [facility] [address], [place], [address] . tel:[phone] OFFICE/OUTPT EM NEW COMPREH/MODE RATE 45 MINS [id number] - [facility], [address], [place], [address], tel: [phone] PMS Burke Abdominal pain (chief complaint)o besity (chief complaint) Abdominal painObesityScreeni ng 4 Burke Montilla. [address], [place], [place], [address]. tel:[phone] Referring Provider: Roldan Moses, [address], [place], [address] . tel:[phone] Family History Family Member Type Diagnosis Age At Onset Father Problem (finding) Alive and well Brother Problem (finding) Alive and well Sister Problem (finding) Alive and well Mother Problem (finding) Alive and well Payers Payer name Insurance type Covered green party ID Authoriza tion(s) SELF PAY PROMPT PAY 09 Social History Type Description Quantity Date Captured Comments Alcohol Use Details No Caffeine Use Details No Tobacco Use Status Never smoked tobacco 2016 Smoking Status Never smoker Non-Smoking Tobacco Use Details : No Details Available : No Details Available Sex Female Chief Complaint And Reason For Visit From encounter dated '12/20/2016 14:00'. Depression (chief complaint). Description: The patient presents with anxious/fearful thoughts and depressed mood but denies thoughts of or suicide. 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: states now depressionis better and is not taking meds for it. Back pain (chief complaint). Description: The problem is fluctuating. It occurs occasionally. Symptoms are aggravated by lifting.The patient denies relieving factors. 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 Insomnia (chief complaint). Description: The patient presents for insomnia. The symptoms are worsening. These complaints are continual. Relevant history: time to fall asleep is 3 hours per night and a BMI of 31.51. No history of head/facial trauma or neuromuscular disorder. The patient has the following risk factors for insomnia: BMI > 25. The patient does not have: age > 40 yearsor use of alcohol. The patient denies awakening with choking, awakening with shortness of breath, cataplexy, changes in appetite, decreased libido, depression, difficulty concentrating, difficulty initiating sleep, difficulty maintaining sleep, gasping during sleep, headache upon awakening, heartburn, increased fatigue, irritability, malocclusion, nasal congestion, non-restorative sleep, personality changes, poor or worsening memory, sleep walking, snoring (reported by patient), snoring (reported by others), weight gain, wheezing or witnessed apnea or irregular nighttime breathing. Additionalinformation: gaking OTC meds. Reason For Referral Reason For Referral No Information Plan Of Treatment Date Type Action Status Patient Education A Healthy Lifestyle: Ca re Instructions completed Patient Education Depression Treatment: A fter Your Visit completed Patient Education Anxiety Disorder: After Your Visit completed Future Order: Lab Order urinalys is ([id number]), Ordered on: Ordered Future Order: Lab Order HCG, uzma l ([id number]), Ordered on: Ordered Future Order: Lab Order Urinalys is, Routine ([id number]), Ordered on: Ordered Future Order: Lab Order CBC w/di ff ([id number]), Ordered on: Ordered Future Order: Lab Order BMP pane l ([id number]), Ordered on: Ordered Future Order: Lab Order CMP pane l ([id number]), Ordered on: Ordered Future Order: Lab Order Amylase ([id number]), Ordered on: Ordered Future Order: Lab Order CBC w/di ff ([id number]), Ordered on: Ordered History Of Present Illness Encounter Date Complaint History Of Prese nt Illness Insomnia The patient pres ents for insomnia. The symptoms are worsening. These complaints are continual. Relevant history: time to fall asleep is 3 hours per night and a BMI of 31.51. No history of head/facial trauma or neuromuscular disorder. The patient has the following risk factors for insomnia: BMI > 25. The patient does not have: age > 40 years or use of alcohol. The patient denies awakening with choking, awakening with shortness of breath, cataplexy, changes in appetite, decreased libido, depression, difficulty concentrating, difficulty initiating sleep, difficulty maintaining sleep, gasping during sleep, headache upon awakening, heartburn, increased fatigue, irritability, malocclusion, nasal congestion, non-restorative sleep, personality changes, poor or worsening memory, sleep walking, snoring (reported by patient), snoring (reported by others), weight gain, wheezing or witnessed apnea or irregular nighttime breathing. 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: gaking OTC meds. Back pain The problem is f luctuating. It occurs occasionally. Symptoms are aggravated by lifting.The patient denies relieving factors. 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 Depression The patient pres ents with anxious/fearful thoughts and depressed mood but denies thoughts of or suicide. 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: states now depression is better and is not taking meds for it. Depression The patient pres ents with anxious/fearful thoughts, depressed mood and difficulty concentrating but denies thoughts of or suicide. 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: on celexa and has helped. hematuria had ? kidney [facility] in the past and had visited [facility] and then went to [facility] and now states she believes that she is having repeated kidneys stones has not been tested other than CT csan at [facility] Left AMA at [facility] for unclear reasons No fevers ,lots of nausea snd no vomting no melena p Urgency? goes from back to right flank and to stomach bite under left arm noted pain i n left arm and has small area under left arm back pain Onset: 1 year ag o. The problem is fluctuating. It occurs persistently. Location of pain is lower back. Symptoms are relieved by pain meds/drugs and physical therapy. 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: still with pain; and is awaiting surgery. Depression There is continu ation of initial symptoms. The patient presents with anxious/fearful thoughts and depressed mood but denies thoughts of or suicide. The patient denies any chronic pain, headache, irritability, nausea, sweating, trembling, urinary frequency, vomiting and weight gain. 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: taking celexa and feels better not as bad as before. Back pain The problem is i mproving. Location of pain is lower back.The patient denies aggravating factors. The patient denies relieving factors. 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: has improved and not using back pain. depression The patient pres ents with anxious/fearful thoughts, depressed mood, diminished interest or pleasure and fatigue but denies thoughts of or suicide. The patient's risk factors include history of depression. The depression is not with alcohol use. The depression is associated with chronic pain. 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: has had periods of crying has become more agoraphobic trouble sleepinghas been crying and yelling at people and has become hypersensitive. foot pain Onset: 2 weeks a go. Location: foot. Pertinent negatives include bruising, crepitus, decreased mobility, difficulty initiating sleep, joint instability, joint tenderness, limping, locking, nocturnal awakening, nocturnal pain, numbness, popping, spasms, swelling, tingling in the arms, tingling in the legs and weakness. 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: saw Dr Brown and used boot,did help as much and xray was negative. tick bite went camping [place] weekend did not know exactly when happened but noted 1 week after slight rash and no evidence of it now back pain The problem is f luctuating. It occurs occasionally. Location of pain is lower back.There is no radiation of pain. The patient describes the pain as burning and sharp. Symptoms are relieved by injection: epidural injection. 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: did not get back xray and it hurts despite treatment;was given steroid injections can not get injections and has stomach attack with this so can not get;takes pain meds and musclle relaxant and it helps aware of addictive potential of meds. left foot pain It occurs occasi onally and is fluctuating. Location: left foot. There is no radiation. The pain is sharp and throbbing. Context: there is no injury. The pain is aggravated by walking. Pertinent negatives include bruising, crepitus, decreased mobility, difficulty initiating sleep, joint instability, joint tenderness, limping, locking, nocturnal awakening, nocturnal pain, numbness, popping, spasms, swelling, tingling in the arms, tingling in the legs and weakness. 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: goes over side of foot and goes to top of foot. Back pain The problem is s table. It occurs persistently. Location of pain is lower back.There is no radiation of pain. The patient describes the pain as sharp and throbbing. Symptoms are aggravated by bending and lifting. Symptoms are relieved by pain meds/drugs and physical therapy. 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: pain comes on with sitting and usually occurs with motion took steroids and had epigastriuc pain from it given percocet and neurontin. Obesity The severity of the problem is moderate. Associated symptoms include abdominal pain and fatigue. Pertinent negatives include acne, amenorrhea, anhidrosis, anorexia, anxiety, cold intolerance, constipation, depression, delayed development, facial plethora, generalized weakness, hair loss, headache, hirsutism, hoarseness, lethargy, low self-esteem, oligomenorrhea, paresthesias, striae or vision changes. 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: loss of weight due to exercise and diet. abdominal pain The severity of the problem is moderate. The location is left upper quadrant and left lower quadrant. Associated symptoms include back pain, change in appetite, fever, flank pain, lightheadedness, nausea and vomiting. Pertinent negatives include blood in stool, dyspnea, hematuria, myalgia, weight gain and weight loss.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:had urinary urgency with foul smell and has been confused and loss of appetitis has felt like pasing out. Obesity Abdominal pain The severity of the problem is moderate. The symptoms are constant. The location is midline. The quality of the pain is achy and burning. Symptoms are not aggravated by alcohol or anxiety. Associated symptoms include nausea and vomiting (severity is severe where the duration is 2 day(s) with a frequency of 1x daily and occurs at night). Pertinent negatives include constipation, diarrhea, flank pain and vaginal discharge.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:last 3-4 hours and and feels like a sword twisting and hurts start prilosec on Fridayha CT scan and had contrast and had itching;burps initially tasyes sour and has occurred more frequently. obesity The severity of the problem is moderate. Associated symptoms include abdominal pain. Pertinent negatives include acne, amenorrhea, anhidrosis, anorexia, anxiety, cold intolerance, constipation, depression, delayed development, facial plethora, fatigue, generalized weakness, hair loss, headache, hirsutism, hoarseness, lethargy, low self-esteem, oligomenorrhea, paresthesias, striae or vision changes. Functional Status Date Functional Assessmen t No Information Instructions Date Instruction Additional Infor mation No Information Assessments Type Assessment Date No Information Mental Status Date Cognitive Assessment Orientation - [place] ed to time, place, person, situation. Patient Care Teams Name Effective Dates (start - stop) Status Members No Information
--- OUTSIDE RECORDS SUMMARY | 2024-11-15 18:15 | XMS_ITS | Referral Summary ---
Author Organization [facility] Address [address] [place] [address] Care Team Providers Care Harm Reduction Worker Name Role Phone Cuauhtemoc Rivera MD Primary Care Provider Encounters Date Type Department Care Team Description 09/11/2024 2:09 AM ULTRASOUND TECHNOL - 09/11/2024 11:59 PM ULTRASOUND TECHNOL Hospital Encounter [facility] Emergency, Room R Discharge Disposition: Discharge to home or self care from Last 3 Months Allergies Active Allergy Reactions Criticality Noted Date Comments Iodinated Contrast Media Hives Medium 08/07/2022 Penicillins Hives Medium 2015 Prednisone Anxiety Low 11/13/2012 Medications ciprofloxacin (CIPRO) 500 mg tabletIndication s:Urinary Tract/Genitourin macario Infection Take 1 tablet (500 mg total) by mouth 2 (two) times a day 20 tablet 08/14/2022 Active phenazopyridine (PYRIDIUM) 200 mg tablet Take 1 tablet (200 mg total) by mouth 3 (three) times a day 6 tablet 08/14/2022 Active acetaminophen (TYLENOL) 500 mg tablet Take 1 tablet (500 mg total) by mouth every 6 (six) hours as needed for pain 30 tablet 08/14/2022 Active methocarbamoL (ROBAXIN) 500 mg tablet Take 1 tablet (500 mg total) by mouth 2 (two) times a day 20 tablet 08/14/2022 Active Active Problems Problem Noted Date Diagnosed Date Migraine 05/04/2023 Encounter for medical examination to establish c are 06/23/2022 Encounter for screening for lipoid disorders 08/2022 Encounter for screening mamm ogram for malignant neoplasm of breast 06/23/2022 Opioid dependence with withdrawal ([facility]) 11/13 Resolved Problems Problem Noted Date Diagnosed Date Resolved Date Encounter for medication refill 07/17/2019 11/22/2019 Anxiety disorder 05/03/2018 11/22/2019 Allergic conjunctivitis, bilateral 05/03/2018 11/22/2019 Opiate withdrawal 11/17/2017 11/22/2019 Left sided sciatica 11/17/2017 11/22/19 20 Oral candidiasis 11/17/2017 11/22/2019 Immunizations Name Administration Dates Next Due Hep A, Adult 07/08/2018 Influenza, Quadrivalent, Split, Intramuscular Influenza, Unspecified 09/12/2019 Tdap 02/19/2017 Social History Tobacco Use Types Packs/Day Years Used Date Smoking Tobacco: Never Smokeless Tobacco: Never Tobacco Cessation:Counseling Given: Not Answered Alcohol Use Standard Drinks/Week Comments Yes 0 (1 standard drink = 0.6 oz pur e alcohol) socially Personal Safety Answer Date Recorded Have you ever been in or are you currently in a harmful physical or emotional relationship or is someone making you feel afraid or unsafe? Denies 07/05/2024 Comments No Sex and Gender Information Value Date Recorded Sex Assigned at Not on file Legal Sex Female 12:22 AM ULTRASOUND TECHNOL Gender Identity Not on file Sexual Orientation Not on file Last Filed Vital Signs Vital Sign Reading Time Taken Comments Blood Pressure 124/110 07/05/2024 5:54 PM CDT Pulse 79 07/05/2024 5:54 PM CDT Temperature 36.8 ??C (98.3 ??F) 07/05/2024 5:54 PM CD T Respiratory Rate 16 07/05/2024 5:54 PM CDT Oxygen Saturation 99% 07/05/2024 5:54 PM CDT Inhaled Oxygen Concentration - - Weight 105.7 kg (233 lb) 07/05/2024 5:54 PM CDT Height 170.2 cm (5' 7 ) 06/21/2023 6:52 PM CDT Body Mass Index 36.49 06/21/2023 6:52 PM CDT Plan of Treatment Not on file Insurance [facility] ACCESS CHOICE Member Subscriber Plan / Payer (Ef fective 2024-Present) Name:Lorie Bishop Relation to Subscriber:Self Name:Lorie Bishop Payer ID:[id number] (NAIC) Type:[employer] Address: [address] Advance Directives For more information, please contact: [phone] * Full Code (Latest Code Status on File) Date Activated Date Inactivated Comments 03/01/2021 11:51 AM 03/05/2021 4:32 PM * Full Code Date Activated Date Inactivated Comments 11/22/2019 2:12 PM 11/25/2019 6:59 PM Care Teams Harm Reduction Worker Relationship Specialty Start Date End Date Cuauhtemoc Rivera MD [address] [place] [address] PCP - General Family Medicine 08/14/22
--- OUTSIDE RECORDS SUMMARY | 2024-11-15 18:15 | XMS_ITS | Clinical Summary ---
Author Organization [facility] Address [address] [place] [address] Phone Care Team Providers Care Jig Grinder Set Up Operator Name Role Phone Provider, None Primary Care Provider Unavailabl e Joshua Mcghee APRN, FREELANCE COPYWRITER Unavailable [phone] Allergies Active Allergy Reactions Criticality Noted Date Comments Nsaids Other (see Comments) 2015 Celiac flare up Penicillins Hives 2015 Ketorolac Tromethamine Other (see Comments) 08/2015 Celiac flare up Medications omeprazole (PRILOSEC) 20 MG CAPSULE DELAYED RELEASE Take 1 Cap by mouth daily. 30 Cap 0 2015 Active traMADol (ULTRAM) 50 MG Tablet Take 1 Tab by mouth every 6 hours as needed for Pain. 30 Tab 0 2015 Active polyethylene glycol (MIRALAX) Pack Take 1 Packet by mouth daily. Dissolve in 4-8 oz of liquid. 12 Packet 0 08/24/2015 Active docusate sodium (COLACE) 100 MG Capsule Take 1 Cap by mouth 2 times daily. 20 Cap 0 08/24/2015 Active sucralfate (CARAFATE) 1 GM Tablet Take 1 Tab by mouth every 6 hours. 28 Tab 0 08/24/2015 Active propranolol (INDERAL) 20 MG Tablet Take 30 mg by mouth daily. Active metoclopramide (REGLAN) 10 MG Tablet Take 1 Tab by mouth 4 times daily as needed for Nausea. 20 Tab 0 10/18/2015 Active HYDROcodone-riley taminophen (NORCO) 5-325 MG Tablet Take 1 Tab by mouth every 8 hours as needed for Pain. 20 Tab 0 10/18/2015 Active butalbital-acet aminophen-caffe ine (FIORICET, ESGIC) 50-325-40 MG Tablet Take 1 Tab by mouth every 4 hours as needed for Headaches. Active SUMAtriptan (IMITREX) 100 MG Tablet Take 100 mg by mouth daily as needed for Migraine. Use as directed. May repeat dose in 2 hours if headache recurs. Active citalopram (CELEXA) 40 MG Tablet Take 40 mg by mouth daily. Active Rizatriptan Benzoate 10 MG Tablet Take 10 mg by mouth once as needed. May repeat in 2 hours in needed Active gabapentin (NEURONTIN) 800 MG Tablet Take 800 mg by mouth daily. Active cyproheptadine (PERIACTIN) 4 MG Tablet Take 4 mg by mouth nightly. Active ondansetron (ZOFRAN) 4 MG Tablet Take 1-2 Tabs by mouth every 8 hours as needed for Nausea. 10 Tab 0 03/04/2017 Active predniSONE (DELTASONE) 50 MG Tablet Take 1 Tab by mouth daily. 5 Tab 0 03/04/2017 Active Phentermine HCl 37.5 MG Capsule TAKE 1 CAPSULE BY MOUTH EVERY DAY 04/23/2021 Active traZODone (DESYREL) 50 MG Tablet TAKE 1 TABLET BY MOUTH EVERY DAY AT NIGHT 05/18/2021 Active Active Problems Problem Noted Date Diagnosed Date Behavioral change 08/01/2016 Encounters Date Type Department Care Team Description 09/11/2024 2:12 AM COTTAGE CHEESE MAKER - 09/11/2024 6:06 AM [facility] Emergency [facility] [address] [place] [address] Bradley Burnett MD Palpitations Discharge Disposition: Discharged to home or Selfcare 09/11/2024 Travel from Last 3 Months Social History Tobacco Use Types Packs/Day Years Used Date Smoking Tobacco: Never Smokeless Tobacco: Never Alcohol Use Standard Drinks/Week Comments No 0 (1 standard drink = 0.6 oz pur e alcohol) Comments No Sex and Gender Information Value Date Recorded Sex Assigned at Female 09/11/2024 2:20 AM COTTAGE CHEESE [employer]KER Legal Sex Female 12:40 AM CDT Gender Identity Female 09/11/2024 2:20 AM [employer]AGE CHEESE [employer]KER Sexual Orientation Not on file Last Filed Vital Signs Vital Sign Reading Time Taken Comments Blood Pressure 133/99 09/11/2024 6:00 AM [employer]AGE CHEESE [employer]KER Pulse 87 09/11/2024 6:00 AM [employer]AGE [employer]ESE [employer] Temperature 36.4 ??C (97.5 ??F) 09/11/2024 2:20 AM CS T Respiratory Rate 15 09/11/2024 6:00 AM COTTAGE CHEESE [employer]KER Oxygen Saturation 99% 09/11/2024 6:00 AM [employer]AGE CHEESE [employer]ER Inhaled Oxygen Concentration - - Weight 107 kg (236 lb) 09/11/2024 2:20 AM [employer]AGE CHEESE [employer] Height 170.2 cm (5' 7 ) 09/11/2024 2:20 AM COTTAGE CHEESE [employer]KER Body Mass Index 36.96 09/11/2024 2:20 AM COTTAGE CHEESE MAKER Plan of Treatment Health Maintenance Due Date Last Done Comments Hepatitis C Virus (HCV) Screening 1980 Hepatitis B Immunization (1 of 3 - 19+ 3-dose series) 1999 Pap Smear 2001 Cervical Cancer Screening (CCS) 2010 HPV/Cotest 2010 Discussion re Starting/Frequency of Mammograms 2020 Influenza Immunization (#1) 2024 12/0 10/2018, 02/10/2017 SARS-COV-2 Immunization ( season) 2024 08/06/2021, 06/26/2021 Respiratory Syncytial Virus (RSV) Immunization (Adult) (1 - 1-dose 75+ series) 2055 DTaP/Tdap/Td Immunization Discontinued 02/19/2017 TdaP Immunization Completed 02/19/2017 Meningococcal Immunization (ACWY) Aged Out No longer eligible based on patient's age to complete this topic Pneumococcal Immunization Combined Aged Out No longer eligible based on patient's age to complete this topic Rotavirus Immunization Aged Out No lo nger eligible based on patient's age to complete this topic Procedures Procedure Name Priority Date/Time Associated Diagnosis Comments XR CHEST SINGLE VIEW PORTABLE STAT 09/11/2024 4:05 AM [employer]AGE [employer] CBC WITH AUTO DIFFERENTIAL STAT 09/11/2024 3:51 AM [employer]AGE [employer]ER THYROXINE (T4) FREE STAT 09/11/2024 3 :51 AM [employer] THYROID STIMULATING HORMONE (TSH) STAT 09/11/2024 3:51 AM [employer]AGE [employer]ER URINALYSIS REFLEX IF INDICATED BY ABNORMAL RESULTS STAT 09/11/2024 3:51 AM [employer]AGE [employer]ER TROPONIN I, HIGH SENSITIVITY (HSTRP) STAT 09/11/2024 3:51 AM [employer]AGE CHEESE [employer]ER MAGNESIUM (MG) STAT 09/11/2024 3:51 AM [employer]AGE CHE[employer]ER D-DIMER STAT 09/11/2024 3:51 AM [employer]AGE CHEESE [employer]KER COMPLETE BLOOD COUNT (CBC) WITH DIFF STAT 09/11/2024 3:51 AM [employer]AGE CHEESE [employer]KER CMP (COMPREHENSIVE METABOLIC PANEL) STAT 09/11/2024 3:51 AM [employer]OTTAGE CHEESE MAKER B-TYPE NATRIURETIC PEPTIDE (BNP) STAT 09/11/2024 3:51 AM [employer]OTTAGE CHEESE [employer]KER EKG 12 LEAD STAT 09/11/2024 2:19 AM COTTAGE CHEESE MAKER EKG SCAN 09/11/2024 12:00 AM COTTAGE CHEESE MAKER from Last 3 Months Results * XR CHEST SINGLE VIEW PORTABLE (09/11/2024 4:05 AM COTTAGE CHEESE MAKER) Anatomical Region Laterality Modality Chest N/A Digital Radiogra phy 09/11/2024 4:19 AM COTTAGE CHEESE [employer]KER Impressions 09/11/2024 4:22 AM COTTAGE CHEESE MAKER IMPRESSION: ?? No acute cardiopulmonary abnormality. Narrative 09/11/2024 4:22 AM COTTAGE CHEESE MAKER EXAM DESCRIPTION: ?? XR CHEST SINGLE VIEW PORTABLE REASON FOR STUDY: ?? c/o rapid heart rate with intermittent chest pressure x 30 mins ENTRY LEVEL ELECTRICIAN. HX: Anxiety, HTN ?? TECHNIQUE: Single radiographic view of the chest. COMPARISON: ?? None. FINDINGS: LUNGS/PLEURA: ?? No focal consolidation or pneumothorax. No pleural effusion. HEART/MEDIASTINUM: Cardiac silhouette is ??normal. ??Remaining mediastinal silhouettes are unremarkable. HARDWARE/LINES/TUBES: ?? EKG leads overlie the film. BONES: ?? No acute findings. THIS IS AN ELECTRONICALLY VERIFIED FINAL REPORT 09/11/2024 4:19 AM - Electronically signed by ??Mikaela Cruz M.D. SN: SN D: ??09/11/2024 4:19 AM T: ??09/11/2024 4:19 AM Report ID: [id number] Reading Location: ??[id number] Procedure Note Mikaela Cruz MD - 09/11/2024 EXAM DESCRIPTION: XR CHEST SINGLE VIEW PORTABLE REASON FOR STUDY: c/o rapid heart rate with intermittent chest pressure x 30 mins ENTRY LEVEL ELECTRICIAN. HX: Anxiety, HTN TECHNIQUE: Single radiographic view of the chest. COMPARISON: None. FINDINGS: LUNGS/PLEURA: No focal consolidation or pneumothorax. No pleural effusion. HEART/MEDIASTINUM: Cardiac silhouette is normal. Remaining mediastinal silhouettes are unremarkable. HARDWARE/LINES/TUBES: EKG leads overlie the film. BONES: No acute findings. THIS IS AN ELECTRONICALLY VERIFIED FINAL REPORT 09/11/2024 4:19 AM - Electronically signed by Mikaela Cruz M.D. SN: SN Report ID: [id number] Reading Location: [id number] IMPRESSION: No acute cardiopulmonary abnormality. Bradley Burnett MD [facility] DIAGNOSTIC ORDERABLES Final Result * (ABNORMAL) URINALYSIS REFLEX IF INDICATED BY ABNORMAL RESULTS (09/11/2024 3:51 AM COTTAGE CHEESE MAKER) SPECIFIC GRAVITY 1.010 1.003 - 1.030 09/11/2024 4:12 AM COTTAGE CHEESE MAKER [facility] URINE PH 6.5 5.0 - 9.0 09/11/2024 4:12 AM COTTAGE CHE[employer]KER [facility] WBC ESTERASE 25 /ul(A) Negative 09/11/2024 4:12 AM C[employer]AGE CHE[employer]KER [facility] NITRITE Negative Negative 09/11/2024 4:12 AM COTTAGE CHEESE [employer]KER [facility] PROTEIN, RANDOM URINE 15 mg/dL(A) Negative 09/11/2024 4:12 AM COTTAGE CHE[employer]KER [facility] URINE GLUCOSE, QUAL Negative Negative 09/11/2024 4:12 AM [facility] URINE KETONES Negative Negative 09/11/2024 4:12 AM [facility] UROBILINOGEN Normal Normal mg/dL 09/11/2024 4:12 AM COTTAGE CHE[employer]KER [facility] URINE BLOOD 10 /uL(A) Negative vivi/ul 09/11/2024 4:12 AM [facility] URINALYSIS COLOR Yellow 09/11/20 4:12 AM [employer]AGE [employer]ER [facility] URINALYSIS CLARITY Clear 09/11/2024 4:12 AM [facility] WBC (Urine) 0-5 Negative, 0-5 /hpf 09/11/2024 4:12 AM C[employer]AGE CHE[employer]KER [facility] URINE RBC'S 0-2 Negative, 0-2 /hpf 09/11/2024 4:12 AM [facility] EPITHELIAL CELLS Occasional /lpf 09/11/20 4:12 AM [facility] BACTERIA, URINE Negative Negative /hpf 09/11/2024 4:12 AM [facility] Urine URINE SPECIMEN COLLECTION, CLEAN CATCH / Unknown Non-Phlebotomy Collection / Unknown 09/11/2024 3:51 AM C[employer]AGE CHEESE MAKER 09/11/2024 3:57 AM COTTAGE CHEESE [employer]KER us Bradley Burnett MD URINE ORDERABLES Final Re sult [facility] [address] [place] [address] * TROPONIN I, HIGH SENSITIVITY (HSTRP) (09/11/2024 3:51 AM COTTAGE CHEESE MAKER) TROPONIN I, HIGH SENSITIVITY- [place] <3 <=14 ng/L 09/11/2024 4:36 AM [facility] Comment: High-sensitivity troponin I results are reported in ng/L making the result appear to be 1,000 times higher than the contemporary troponin I value which is reported in ng/ml. Results from [place]. Blood Venipuncture / Unknown 09/11/2024 3:51 AM C[employer]AGE CHE[employer]KER 09/11/2024 3:57 AM [employer]AGE [employer]ER Bradley Burnett MD CHEMISTRY ORDERABLES Estela l Result [facility] [place] [address] * (ABNORMAL) CBC with Auto Differential (09/11/2024 3:51 AM COTTAGE CHEESE [employer]KER) WBC 6.04 4.00 - 12.00 10(3)/mcL 09/11/2024 4:01 AM [facility] RBC 4.11 3.80 - 5.30 10(6)/mcL 09/11/2024 4:01 AM [facility] HEMOGLOBIN (HGB) 12.5 12.0 - 15.8 g/dL 09/11/2024 4:01 AM [facility] HEMATOCRIT (HCT) 37.4 36.0 - 47.0 % 09/11/2024 4:01 AM [facility] MCV 91.0 82.0 - 96.0 fL 09/11/2024 4:01 AM [facility] MCH 30.4 26.0 - 34.0 pg 09/11/2024 4:01 AM [facility] MCHC 33.4 31.0 - 36.0 g/dL 09/11/2024 4:01 AM [facility] PLATELET COUNT 245 140 - 440 10(3)/mcL 09/11/2024 4:01 AM [facility] RDW 12.5 11.8 - 15.5 % 09/11/2024 4:01 AM [facility] MPV 10.9 9.7 - 12.4 fL 09/11/2024 4:01 AM [facility] NEUTROPHILS 41.1(L) 47.0 - 73.0 % 09/11/2024 4:01 AM [facility] LYMPHOCYTES 28.1 18.0 - 42.0 % 09/11/2024 4:01 AM [facility] MONOCYTES 11.1 4.0 - 12.0 % 09/11/2024 4:01 AM [facility] EOSINOPHILS 18.7(H) 0.0 - 5.0 % 09/11/2024 4:01 AM [facility] BASOPHILS 1.0 0.0 - 1.0 % 09/11/2024 4:01 AM [facility] ABSOLUTE NEUTROPHILS 2.48 1.60 - 7.70 10(3)/[facility] 09/11/2024 4:01 AM [facility] ABSOLUTE LYMPHOCYTES 1.70 1.30 - 3.20 10(3)/[facility] 09/11/2024 4:01 AM [facility] ABSOLUTE MONOCYTES 0.67 0.20 - 1.00 10(3)/[facility] 09/11/2024 4:01 AM [facility] ABSOLUTE EOSINOPHIL 1.13(H) 0.00 - 0.40 10(3)/[facility] 09/11/2024 4:01 AM [facility] ABSOLUTE BASOPHILS 0.06 0.00 - 0.10 10(3)/[facility] 09/11/2024 4:01 AM [facility] NRBC PER 100 WBC 0 09/11/20 4:01 AM [facility] Blood Venipuncture / Unknown 09/11/2024 3:51 AM [employer]AGE [employer]ER 09/11/2024 3:57 AM [employer]AGE [employer]KER us Bradley Burnett MD HEMATOLOGY ORDERABLES Fin al Result [facility] [place] [address] * THYROXINE (T4) FREE (09/11/2024 3:51 AM COTTAGE CHE[employer]KER) T4 FREE 0.7 0.7 - 1.9 ng/dL 09/11/2024 4:36 AM COTTAGE CHE[employer]KER [facility] Blood Venipuncture / Unknown 09/11/2024 3:51 AM [employer]AGE [employer]ER 09/11/2024 3:57 AM [employer]AGE [employer]ER Bradley Burnett MD CHEMISTRY ORDERABLES Estela l Result [facility] [place] [address] * (ABNORMAL) Thyroid Stimulating Hormone (TSH) (09/11/2024 3:51 AM COTTAGE CHE[employer]KER) TSH 10.936(H) 0.300 - 5.000 mIU/L 09/11/2024 4:36 AM C[employer]AGE [employer] [facility] Blood Venipuncture / Unknown 09/11/2024 3:51 AM C[employer]AGE CHE[employer]KER 09/11/2024 3:57 AM COTTAGE CHEESE [employer]KER Result [facility] Bradley Burnett MD CHEMISTRY ORDERABLES Estela l Result Performing Organization Address City/[facility]/ZIP Co de Phone Number [facility] [place] [address] * MAGNESIUM (MG) (09/11/2024 3:51 AM COTTAGE CHE[employer]KER) MAGNESIUM 2.0 1.6 - 2.6 mg/dL 09/11/2024 4:17 AM C[employer]AGE CHE[employer]ER [facility] Blood Venipuncture / Unknown 09/11/2024 3:51 AM C[employer]AGE CHE[employer]KER 09/11/2024 3:57 AM [employer]AGE [employer]ER Bradley Burnett MD CHEMISTRY ORDERABLES Estela l Result [facility] [place] [address] * D-Dimer (09/11/2024 3:51 AM COTTAGE CHE[employer]KER) Pathologist [facility] D DIMER 0.39 <0.50 mcg/mL FEU 09/11/2024 4:17 AM [facility] Blood Venipuncture / Unknown 09/11/2024 3:51 AM [employer]AGE [employer]ER 09/11/2024 3:57 AM C[employer]AGE CHE[employer]KER Narrative [facility] - 09/11/2024 4:17 AM COTTAGE CHE[employer]KER The FDA has approved this method to exclude the diagnosis of DVT and/or PE at the cutoff value of <0.50 mcg/mL FEU. us Bradley Burnett MD HEMATOLOGY ORDERABLES Fin al Result [facility] [place] [address] * (ABNORMAL) CMP (Comprehensive Metabolic Panel) (09/11/2024 3:51 AM COTTAGE CHE[employer]KER) [facility] SODIUM 141 136 - 145 mmol/L 09/11/2024 4:17 AM [facility] POTASSIUM 3.9 3.5 - 5.1 mmol/L 09/11/2024 4:17 AM [facility] CHLORIDE 109(H) 98 - 107 mmol/L 09/11/2024 4:17 AM [facility] CO2, VENOUS 20(L) 22 - 30 mmol/L 09/11/2024 4:17 AM [facility] ANION GAP 15.9 <18.0 mmol/L 09/11/2024 4:17 AM [facility] GLUCOSE 131(H) 70 - 99 mg/dL 09/11/2024 4:17 AM [facility] BUN 12 5 - 18 mg/dL 09/11/2024 4:17 AM [facility] CREATININE, BLOOD 0.83 0.60 - 1.00 mg/dL 09/11/2024 4:17 AM [facility] BUN/CREATININE RATIO 14 12 - 20 ratio 09/11/2024 4:17 AM [facility] TOTAL PROTEIN 7.5 6.3 - 8.2 g/dL 09/11/2024 4:17 AM [facility] ALBUMIN 4.0 3.5 - 5.0 g/dL 09/11/2024 4:17 AM [facility] A/G RATIO 1.1 1.0 - 2.2 09/11/2024 4:17 AM [facility] CALCIUM 9.6 8.7 - 10.5 mg/dL 09/11/2024 4:17 AM [facility] T BILI 0.3 0.2 - 1.2 mg/dL 09/11/2024 4:17 AM [facility] SGOT (AST) 36(H) 5 - 34 U/L 09/11/2024 4:17 AM [facility] SGPT (ALT) 32 0 - 55 U/L 09/11/2024 4:17 AM [facility] ALKALINE PHOSPHATASE 82 40 - 150 U/L 09/11/2024 4:17 AM [facility] GFR, ESTIMATED >60 >=60 09/11/2024 4:17 AM [facility] Comment: Creatinine Clearance is the preferred criteria for selecting drug dose adjustments in renally impaired patients. ??The GFR is provided as additional pertinent clinical information. GFR is reported in mL/min/1.73 sq m. Calculation based on the Chronic Kidney Disease Epidemiology Collaboration (CKD- EPI) equation refit without adjustment for race. GFR, EST. >60 >=60 024 4:17 AM [facility] GFR, EST. NONAFRICAN >60 >=60 09/11/2024 4:17 AM [facility] Blood Venipuncture / Unknown 09/11/2024 3:51 AM [employer]AGE [employer]ER 09/11/2024 3:57 AM [employer]AGE [employer]ER Bradley Burnett MD CHEMISTRY ORDERABLES Estela l Result Performing Organization Address City/[facility]/ZIP Co de Phone Number [facility] [place] [address] * B-Type Natriuretic Peptide (BNP) (09/11/2024 3:51 AM COTTAGE CHEESE MAKER) B TYPE NATRIURETIC PEPTIDE 27 <100 pg/mL 09/11/2024 4:13 AM COTTAGE CHEESE [employer]KER [facility] Blood Venipuncture / Unknown 09/11/2024 3:51 AM COTTAGE [employer]KER 09/11/2024 3:57 AM [employer]OTTAGE [employer]KER Bradley Burnett MD CHEMISTRY ORDERABLES Estela l Result Performing Organization Address [facility] Co de Phone Number [facility] [place] [address] * EKG 12 LEAD (09/11/2024 2:19 AM COTTAGE CHE[employer] MAKER) Ventricular Rate 107 BPM EXTERNAL EKG Atrial Rate 107 BPM EXTERNAL EKG P-R Interval 164 ms EXTERNAL EKG QRS Duration 78 ms EXTERNAL EKG Q-T Duration 346 ms EXTERNAL EKG QTC CALCULATION 461 ms EXTERNAL EKG P [place] 47 degrees EXTERNAL EKG R [place] -10 degrees EXTERNAL EKG T [place] 28 degrees EXTERNAL EKG 09/11/2024 2:19 AM COTTAGE CHEESE [employer]KER Impressions EXTERNAL EKG - 09/18/2024 11:49 AM COTTAGE CHE[employer]KER Sinus tachycardia Otherwise normal ECG No previous ECGs available Confirmed by Magy Cervantes ([id number]) on 09/18/2024 11:49:41 AM Narrative Procedure Note Magy Cervantes MD - 09/18/2024 IMPRESSION: Sinus tachycardia Otherwise normal ECG No previous ECGs available Confirmed by Magy Cervantes ([id number]) on 09/18/2024 11:49:41 AM us Bradley Burnett MD IMG ECG ORDERABLES Final Result EXTERNAL EKG * EKG SCAN (09/11/2024 12:00 AM COTTAGE CHEESE MAKER) 09/11/2024 us Provider Scan IMG ECG ORDERABLES Final Result RESULTING AGENCY from Last 3 Months Insurance [place] MEDICA[place] OUT OF STATE [place]ICAID [place] Care Teams Jig Grinder Set Up Operator Relationship Specialty Start Date End Date Provider, None [place] PCP - General 07/15/21 Joshua Mcghee, LABORATORY CLERK, FREELANCE COPYWRITER [address] [facility] [address] Advanced Practice Nurse 05/29/21
--- OUTSIDE RECORDS SUMMARY | 2024-11-15 18:15 | XMS_ITS | Clinical Summary ---
Author Organization [facility] Address [address] [place] [address] Care Team Providers Care Coverage Specialist Rn Name Role Phone Cuauhtemoc Rivera MD Primary Care Provider + [phone] Allergies Active Allergy Reactions Criticality Noted Date [...] of breast 06/23/2022 Opioid dependence with withdrawal (CMS/HCC) 11/13 Resolved Problems Problem Noted Date Diagnosed Date Resolved Date Encounter for medication refill 07/17/2019 11/22/2019 Anxiety disorder 05/03/2018 11/22/2019 Allergic conjunctivitis, bilateral 05/03/2018 11/22/2019 Opiate withdrawal 11/17/2017 11/22/2019 Left sided sciatica 11/17/2017 11/22/19 20 Oral candidiasis 11/17/2017 11/22/2019 Encounters Date Type Department Care Team Description 09/11/2024 2:09 AM SIGNAL PERSON - 09/11/2024 11:59 PM SIGNAL PERSON Hospital Encounter [facility] Emergency, Room R Discharge Disposition: Discharge to home or self care from Last 3 Months Immunizations Name Administration Dates Next Due Hep A, Adult 07/08/2018 Influenza, Quadrivalent, Split, Intramuscular Influenza, Unspecified 09/12/2019 Tdap 02/19/2017 Surgical History Surgery Date Site/Laterality Comments APPENDECTOMY CHOLECYSTECTOMY Medical History Medical History Date Comments Anxiety Anxiety Social History Tobacco Use Types Packs/Day Years [...] on file Legal Sex Female 12:22 AM SIGNAL PERSON Gender Identity Not on file Sexual Orientation Not on file Obstetrics History Last Filed Vital Signs Vital Sign Reading [...] 06/21/2023 6:52 PM CDT Plan of Treatment Health Maintenance Due Date Last Done Comments Breast Cancer Screening-Mammogram 1980 Cervical Cancer Screening 1980 Depression Screening 1980 Hepatitis C Screening 1980 Varicella Vaccines (1 of 2 - 13+ 2-dose series) 1993 Hepatitis B Screening 1998 Regular Well Visit/Exam 18-64 1998 Covid-19 Vaccine (3 - 2023-2 5 season) 2024 08/06/2021, 06/26/2021 Influenza Vaccine (#1) 2024 , 02/10/2017 DTaP/Tdap/Td Vaccine (2 - Td or Tdap) 02/19/2027 02/19/2017 HPV Vaccines Aged Out No longer eligi ble based on patient's age to complete this topic Pneumococcal vaccine <65 Aged Out No longer eligible based on patient's age to complete this topic Insurance [facility] ANTH ACCESS CHOICE [facility] Advance Directives For more information, please contact: [phone] * Full Code (Latest Code Status on File) Date Activated Date Inactivated Comments 03/01/2021 11:51 AM 03/05/2021 4:32 PM * Full Code Date Activated Date Inactivated Comments 11/22/2019 2:12 PM 11/25/2019 6:59 PM Care Teams Coverage Specialist Rn Relationship Specialty Start Date End Date Cuauhtemoc Rivera MD [address] [place] [id number] PCP - General Family Medicine 08/14/22
[2024-11-15 18:18] VITALS: BP 139/81; PULSE 91; RESP 20; TEMP 36.8; O2SAT 96
--- OUTSIDE RECORDS SUMMARY | 2024-11-15 18:18 | XMS_ITS | Continuity of Care Document ---
Author Organization [id number] - [facility] SpecialistsOndoreH[facility] Address [address] [facility] [address] [place] [address] Phone Care Team Providers Care Car Spotter Name Role Phone Roldan Turk MD Unavailable [...] OFFICE/OUTPT EM EST PROB FOCUS/STRFWD 10 MINS [id number] - [facility] [employer], [address] [facility] [address], [place], [place], [facility], tel:[phone] PMS Burke Depression (chief complaint)B ack pain (chief complaint)I nsomnia (chief complaint) Chronic bilateral low back pain without sciaticaOther chronic painPrimary insomniaAmenorrhea 7 Burke Montilla. [address] [facility] [address], [place], [place], [id number]. tel:[phone] Referring Provider: Roldan Moses, [address] [facility] [address], [place], [address] . tel:[phone] OFFICE/OUTPT EM EST DETAILED/MOD ERATE 25 MINS [id number] - [place] [employer], [address] [facility] [address], [place], [address], tel:[phone] PMS Burke hematuria (chief complaint)D epression (chief complaint) NephrolithiasisDep ressionBack pain 1 5 Burke Montilla. [address] [facility] [address], [place], [place], [address]. tel:[phone] Referring Provider: Roldan Moses, [address], [place], [address] . tel:[phone] OFFICE/OUTPT EM EST DETAILED/MOD ERATE 25 MINS [id number] - [place] [employer],[facility], [address] [facility] [address], [place], [address], [place] tel:[phone] [facility] Depression (chief complaint)b ite under left arm (chief complaint)b ack pain (chief complaint) DepressionInfected cyst of skinAmenorrheaPani c attack 5 Burke Vincent. [address] [facility] [address], [place], [place], [address]. tel:[phone] Referring Provider: Roldan Moses, [address] [facility], [place], [address] . tel:[phone] [id number] - [place] [employer], [address] [facility] [address], [place], [address], [place] tel:[phone] [facility] No Information 5 [facility] Roldan. [address] [facility] [address], [place], [place], [address]. tel:[phone] Referring Provider: Roldan Moses, [address] [place] [address] [address], [place], [address] . tel:[phone] OFFICE/OUTPT EM EST DETAILED/MOD ERATE 25 MINS [id number] - [place] [employer], [address] [facility] [address], [place], [address], [place] tel:[phone] [facility] Back pain (chief complaint)d epression (chief complaint) Back painDepressionPani c attack 5 Burke Vincent. [address] [facility] [address], [place], [place], [address]. tel:[phone] Referring Provider: Roldan Moses, [address] [facility] [address], [place], [address] . tel:[phone] OFFICE/OUTPT EM EST DETAILED/MOD ERATE 25 MINS [id number] - [place] [facility], [address] [facility] [address], [place], [address], [place] tel:[phone] [facility] tick bite (chief complaint)b ack pain (chief complaint)f oot pain (chief complaint) Back painFoot painTick biteBite of nonvenomous arthropod Jan-2 0- 5 [facility]. [address] [facility] [address], [place], [place], [address]. tel:[phone] Referring Provider: Roldan Moses, [address] [facility] [address], [place], [address] . tel:[phone] OFFICE/OUTPT EM EST DETAILED/MOD ERATE 25 MINS [id number] - [facility], [address] [facility] [address], [place], [address], [place] tel: [phone] [facility] left foot pain (chief complaint)B ack pain (chief complaint) Pain in limbBack painUrinary incontinence Jan-0 8 5 [facility]. [address] [facility] [address], [place], [place], [address]. tel:[phone] Referring Provider: Roldan Moses, [address] [address], [place], [address] . tel:[phone] OFFICE/OUTPT EM EST DETAILED/MOD ERATE 25 MINS [id number] - [facility], [address] [facility] [address], [place], [address], [place] tel: [phone] [facility] abdominal pain (chief complaint)O besity (chief complaint) Abdominal painUTI (lower urinary tract infection)ObesityE levated blood pressure reading without diagnosis of hypertension Dec-2 5 [facility]. [address] [facility] [address], [place], [place], [address]. tel:[phone] Referring Provider: Roldan Moses, [address] [facility] [address], [place], [address] . tel:[phone] OFFICE/OUTPT EM NEW COMPREH/MODE RATE 45 MINS [id number] - [facility], [address], [place], [address], tel: [phone] PMS Burke Abdominal pain (chief complaint)o besity (chief complaint) Abdominal painObesityScreeni ng 4 Burke Montilla. [address], [place], [place], [address]. tel:[phone] Referring Provider: Roldan Moses, [address], [place], [address] . tel:[phone] Family History Family Member Type Diagnosis Age At Onset Mother Problem (finding) Alive and well Sister Problem (finding) Alive and well Brother Problem (finding) Alive and well Father Problem (finding) Alive and well Payers Payer name Insurance type Covered libertarian ID Authoriza tion(s) SELF PAY PROMPT PAY [...] denies relieving factors. 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.] nighttime breathing. 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: gaking OTC meds. Depression The patient pres ents with anxious/fearful thoughts and depressed mood but denies thoughts of or suicide. 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: states now depression is better and is not taking meds for it. Back pain The problem is f luctuating. It occurs occasionally. Symptoms are aggravated by lifting.The patient denies relieving factors. 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 Depression The patient pres ents with anxious/fearful thoughts, depressed mood and difficulty concentrating but denies thoughts of or suicide. 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: on celexa and has helped. hematuria had [facility] and had visited [facility] [place] and then went to [facility] and now states she believes that she is having repeated kidneys stones has not been tested other than CT csan at [facility] Left AMA at [facility] [place] for unclear reasons No fevers ,lots of nausea snd no vomting no melena p Urgency? goes from back to right flank and to stomach Depression There is continu ation of initial symptoms. The patient presents with anxious/fearful thoughts and depressed mood but denies thoughts of or suicide. The patient denies any chronic pain, headache, irritability, nausea, sweating, trembling, urinary frequency, vomiting and weight gain. 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: taking celexa and feels better not as bad as before. back pain Onset: 1 year ag o. The problem is fluctuating. It occurs persistently. Location of pain is lower back. Symptoms are relieved by pain meds/drugs and physical therapy. 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: still with pain; and is awaiting surgery. bite under left arm noted pain i n left arm and has small area under left arm depression The patient pres ents with anxious/fearful [...] yelling at people and has become hypersensitive. Back pain The problem is i mproving. Location of pain is lower back.The patient denies aggravating factors. The patient denies relieving factors. 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: has improved and not using back pain. back pain The problem is f luctuating. [...] helps aware of addictive potential of meds. tick bite went camping [place] weekend did not know exactly when happened but noted 1 week after slight rash and no evidence of it now foot pain Onset: 2 weeks a go. Location: foot. Pertinent negatives include bruising, crepitus, decreased mobility, difficulty initiating sleep, joint instability, joint tenderness, limping, locking, nocturnal awakening, nocturnal pain, numbness, popping, spasms, swelling, tingling in the arms, tingling in the legs and weakness. 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: saw Dr Brown and used boot,did help as much and xray was negative. left foot pain It occurs occasi onally [...] from it given percocet and neurontin. Obesity abdominal pain The severity of the problem [...] appetitis has felt like pasing out. Obesity The severity of the problem is moderate. Associated symptoms include abdominal pain and fatigue. Pertinent negatives include acne, amenorrhea, anhidrosis, anorexia, anxiety, cold intolerance, constipation, depression, delayed development, facial plethora, generalized weakness, hair loss, headache, hirsutism, hoarseness, lethargy, low self-esteem, oligomenorrhea, paresthesias, striae or vision changes. 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: loss of weight due to exercise and diet. Abdominal pain The severity of the problem [...] Mental Status Date Cognitive Assessment Orientation - [place] ed to time, place, person, situation. Patient Care Teams Name Effective Dates (start - stop) Status Members No Information
--- OUTSIDE RECORDS SUMMARY | 2024-11-15 18:18 | XMS_ITS | Continuity of Care Document ---
Author Organization [facility] Address [address] [place] [address] [place] [address] Phone Care Team Providers Care Rerecording Mixer Name Role Phone Remington Amos MD Unavailable Unavailable Advance Directives Directive Yes / No Effective Date File Name No Information Encounters Encounter Description Practice Location Reason(s) For Visit Diagnoses Date Provider Providers Copied on Encounter [facility], [address] [place] [address] [address], [place], [place], [address], [place] tel:[phone] [employer] No Information [address] D[address] Macedo. [address] [facility] [address], [place], [place], [address], [place]. tel:[phone] Family History Family Member Type Diagnosis Age At Onset No Information Payers Payer name Insurance type Covered constitution party ID Authoriza tion(s) [employer] SOI CI [id number] Social History Type Description Quantity Date Captured [...]
[2024-11-15 18:48] LABS: EDCOVIDSCREEN Negative (Negative); EDINFLUASCREEN Negative (Negative); EDINFLUBSCREEN Negative (Negative)
--- NOTE | 2024-11-15 18:57 | ED_ITS ---
HPI - URI/Sore Throat General Chief Complaint: Upper Respiratory Infection Stated Complaint: Cough Time Seen by Provider: 11/15/24 18:57 Source: patient Mode of arrival: ambulatory Limitations: no limitations History of Present Illness HPI Narrative: 44-year-old female presents with complaint of cough, chest congestion, fatigue for 4 days. Afebrile. Patient reports that she is coughing to the point where she is gagging and vomiting . Has tried several nqza-tnx-kxlqgod medications without relief. Patient concerned that she may have pneumonia. Reports shortness of breath with exertion. Cough is worse at night. All systems reviewed and negative except as noted above. Related Data Allergies Allergy/AdvReac Type Severity Reaction Status Date / Time iohexol (From contrast - CT, Allergy Severe Rash Verified 11/15/24 18:31 X-RAY) NSAIDS (Non-Steroidal Allergy Severe Swelling Verified 11/15/24 18:31 Anti-Inflamma of Lip/Tongue/Throat Penicillins Allergy Unknown Hives Verified 11/15/24 18:31 Review of Systems Review of Systems: CONSTITUTIONAL: Denies fever, chills, or sweats. EYES: Denies visual changes, redness, or discharge. ENT: reports rhinorrhea, congestion. Denies sore throat, or otalgia. CARDIOVASCULAR: Denies chest pain, palpitations, or edema. RESPIRATORY: Reports cough and dyspnea with exertion. GASTROINTESTINAL: Denies abdominal pain, nausea, vomiting, or diarrhea. GENITOURINARY: Denies dysuria or hematuria. SKIN: Denies rash or itching. MUSCULOSKELETAL: Denies back pain, joint pain, or myalgia. NEUROLOGIC: Denies headache, numbness, or weakness. PSYCHIATRIC: Denies anxiety or depression. All other systems reviewed are negative, except as documented in HPI. [facility] Past Medical History Medical History History of kidney stones Surgical History Surgical History History of ureter stent Family History Family History Mother Unknown family medical history Social History Social History Smoking status: Never smoker Gender identity (if verbalized by the patient): Female Comments At time of signature, agree with nursing past medical, surgical, social and family history. There is no relevant family history pertinent to the presenting complaint. Exam Narrative: GENERAL: This is a well-nourished, well-developed patient, Ill-appearing but in no acute distress HEAD: normocephalic, atraumatic. EYES: PERRL. Sclera clear/white. Vision is grossly intact. EARS: External ears normal, auditory canals clear and without drainage, TMs normal without perforation. Hearing grossly intact. NOSE: External nose normal with no obvious nasal discharge, nares without redness, no rhinorrhea. THROAT: Mucous membranes moist, posterior pharynx clear. NECK: Neck supple, non-tender without lymphadenopathy, masses or thyromegaly. CARDIOVASCULAR: Regular rate and rhythm without murmurs, gallops, or rubs. RESPIRATORY: mildly coarse throughout all lung [place]. Breath sounds equal bilaterally. No wheezes, rales, or rhonchi. SKIN: warm, Dry, intact with no suspicious lesions or rash, good texture and turgor. NEURO: awake, alert, and oriented to person, place and time. There were no obvious focal neurologic abnormalities. EXTREMITIES: No joint tenderness, effusion, or edema noted. Course Course Level of Care: Express Care Visit Vital Signs Vital signs: Vital Signs Temperature 36.8 C 11/15/24 18:18 Pulse Rate 91 11/15/24 18:18 Respiratory Rate 20 11/15/24 18:18 Blood Pressure 139/81 11/15/24 18:18 Pulse Oximetry 96 11/15/24 18:18 Oxygen Delivery Room Air 11/15/24 18:18 Temperature 36.8 C 11/15/24 18:18 Pulse Rate 91 11/15/24 18:18 Respiratory Rate 20 11/15/24 18:18 Blood Pressure 139/81 11/15/24 18:18 Pulse Oximetry 96 11/15/24 18:18 Oxygen Delivery Room Air 11/15/24 18:18 reviewed MDM - URI/Sore Throat MDM Narrative Medical decision making narrative: negative COVID and influenza. Chest x-ray negative for pneumonia. Will treat patient for bronchitis with steroids, albuterol inhaler. Patient is alert, nontoxic. O2 saturation 96% room air. Patient is aware of diagnosis, understands and agrees to treatment plan. Anticipatory guidance given. Patient agrees to follow-up as directed and is aware of reasons to seek care at the emergency department. Portions of this record may have been created with voice recognition software Differential Diagnosis Differential diagnosis: Likely upper respiratory infection, sinusitis, viral infection, bronchitis and influenza Lab Data Labs: Lab Results 11/15/24 Range/Units 18:46 POC Influenza A Ag Negative (Negative) POC Influenza B Ag Negative (Negative) POC SARS CoV-2 Ag Negative (Negative) Discharge Plan Discharge Clinical Impression: Acute bronchitis Patient Disposition: Home, Self-Care Condition: Stable Instructions: Acute Bronchitis (ED) Additional Instructions: your COVID and influenza test was negative today. Your chest x-ray was normal. Your bronchitis is viral and cough may last up to 6 weeks. Take medications as prescribed. Do not drive while taking prescription cough medication , this medication may make you drowsy. place cool mist humidifier in bedroom where you sleep. Drink at least 64 oz of water a day. Follow-up with your primary care physician if symptoms are not improving. Patient Language: Senegalese Prescriptions: New (DME) Aerochamber Plus Z Stat Spacer See Rx Instructions .Route Qty: 1 0RF Rx Instructions: As directed prednisone 20 mg tablet 40 mg PO DAILY 5 Days Qty: 10 0RF codeine-guaifenesin [Virtussin AC] 10-100 mg/5 mL liquid 5 ml PO Q6H PRN (Reason: cough) Qty: 120 0RF albuterol sulfate 90 mcg/actuation HFA aerosol inhaler 2 puff inhalation Q4-6H PRN (Reason: shortness of breath or wheezing) Qty: 8.5 0RF Follow-up/Referrals: UNKNOWN,DOCTOR [Primary Care Provider] - Time of Disposition: 19:15
== END 2024-11-15 19:21 | disposition home or self-care (01) ==
PROVIDERS: Emergency Provider Nurse Practitioner Family
DX: J40 Bronchitis, not specified as acute or chronic (principal); Z20.822 Contact with and (suspected) exposure to COVID-19
CPT/HCPCS: 71046; 87426; 87804; 99213; G0463